=== PATIENT | male | born 1955 | race Hispanic/Latino ===

== ENCOUNTER 2018-04-22 08:38 | Outpatient (CLI) | payer MEDICAID ==
[2018-04-22 09:18] LABS: Blood Urea Nitrogen 15 mg/dL (9-20)
--- NOTE | 2018-04-22 14:15 | Cat Scan Report ---
FINAL REPORT EXAM: CT ANGIO ABD/FEMORAL ABD AORTA HISTORY: ATHEROSCLEROSIS OF [place] ARTERIES OF EXTREMITIES WITH TECHNIQUE: CT angiography of the abdomen/pelvis with CT arterial runoff of lower extremities. IV contrast was administered. Axial images and coronal and sagittal reformatted images were obtained. PRIORS: None. FINDINGS: There are coronary artery atherosclerotic calcifications. There is some dependent atelectasis at the lung bases. The visualized liver, spleen, pancreas, adrenal glands and kidneys demonstrate no significant abnormalities. There is no evidence of intestinal obstruction. The appendix is not specifically identified. There are aortoiliac atherosclerotic calcifications. There is infrarenal aortic ectasia with mural thrombus. This measures only 2.7 cm maximum diameter. There are bilateral iliac artery stents. There are iliofemoral atherosclerotic calcifications. There is some stenosis in the left common femoral artery. There is no significant flow within the right superficial femoral artery. Flow in the right lower extremity is seen throughout collateral vessels via the deep femoral artery. There is reconstituted flow in the lower popliteal artery and into the right calf trifurcation. Adequate flow is seen within dorsalis pedis, posterior tibial and peroneal arteries of the right lower extremity. On the left side there is patency of a left femoral popliteal graft. The [place] femoral artery is atherosclerotic and occluded. Flow at the calf arterial trifurcation is attenuated. Flow within anterior tibial and peroneal arteries is diminished but flow in the left posterior tibial artery is maintained. There is little flow seen in the dorsalis pedis. IMPRESSION: Aortoiliac and lower extremity atherosclerotic disease. Right-sided occluded superficial femoral artery with reconstitution for 2 did flow in the popliteal artery calf arteries via deep femoral arterial collaterals. Left-sided fem-pop graft is patent. Atherosclerotic disease involving [place] calf vessels with poor flow in anterior tibial and peroneal arteries. Left posterior tibial artery flow is maintained.
== END 2018-04-22 08:39 | disposition home or self-care (01) ==
LOC: CT 08:38
PROVIDERS: ATTEND Surgery Vascular Surgery
DX: I70.213 Atherosclerosis of native arteries of extremities with intermittent claudication, bilateral legs (principal)
CPT/HCPCS: 36415; 75635; 82565; 84520; Q9967

== ENCOUNTER 2018-05-16 11:33 | Day surgery (SDC) | payer MEDICAID ==
--- NOTE | 2018-05-16 12:14 | History and Physical Report ---
History of Present Illness Date of examination: 05/16/18 History of present illness: Paul Monte Date of visit: 05/06/2018 : 1955 Age: 63 yrs. ___ CHIEF COMPLAINTS Followup of Peripheral Vascular Disease, Unspecified ___ ALLERGIES No Known Drug Allergies ___ MEDICATIONS 1. atorvastatin 80 mg tablet, 1 by mouth daily 2. bupropion HCl XL 300 mg 24 hr tablet, extended release, 1 by mouth daily 3. diphenhydramine 50 mg capsule, 2 by mouth daily 4. hydrochlorothiazide 25 mg tablet, 1 by mouth daily 5. lisinopril 10 mg tablet, 1 by mouth daily 6. metoprolol succinate ER 100 mg tablet,extended release 24 hr, 1 by mouth daily 7. mirtazapine 30 mg tablet, 1 by mouth daily 8. phenytoin sodium extended 200 mg capsule, 1 by mouth twice daily 9. Seroquel 200 mg tablet, 1 by mouth daily 10. Vimpat 200 mg tablet, 1 by mouth daily in the am and 300mg at night ___ DIAGNOSTIC TEST DATES (06/29/2017) nuclear study Note: moderate inferior infarct, minimal inferoapical fredy-infarct ischemia 98456 (02/21/2016) echocardiogram Note: EF 49%, mild AI, [id number] __ HISTORY OF PRESENT ILLNESS Follow up CTA Still has severe pain in left buttocks radiating to thigh, describes as disabling Prior multiple vascular procedures in [place] Minimal right calf pain with walking ___ REVIEW OF SYSTEMS General/Constitutional: denies recent weight loss, denies recent weight gain, denies fever, denies chills, denies change in exercise tolerance Integumentary: denies change in hair or nails, denies rashes, denies skin lesions Eyes: denies diplopia, denies visual field defects, denies blurred vision, denies eye pain, denies discharge Ears, Nose, Mouth, Throat: denies hearing loss, denies epistaxis, denies hoarseness, denies difficulty speaking Respiratory: denies dyspnea, denies cough, denies wheezing, denies hemoptysis, denies orthopnea, denies PND Cardiovascular: denies palpitations, denies chest pain, denies peripheral edema , denies syncope, denies claudication Gastrointestinal: denies ulcer disease, denies hematochezia and denies melena Musculoskeletal: denies venous insufficiency, denies arthritic symptoms, denies back problems Neurological: seizure disorder Psychiatric: depression Endocrine: denies heat/cold intolerance, denies polydipsia, denies polyuria Hematological/Immunologic: denies bleeding disorder ___ PAST HISTORY Past Medical Illnesses: seizures, hx of depression; Cardiovascular Illnesses: hyperlipidemia, hypertension, CABG 2006. AICD 2009 for VT, PVD bilateral fem- pop 2013; Infectious Diseases: no significant history of infectious disease; Surgical Procedures: triple bypass 2006, pacemaker 2009, pad bypass 2013 (both legs); Trauma History: no history of significant physical trauma; NYHA Classification: I; Cardiology Procedures-Noninvasive: EKG February 2017, lexiscan perfusion study June 2017; Device Implants: AICD Medtronic Sprint Quattro 09/05/10; Left Ventricular Ejection Fraction: LVEF of 50% documented via nuclear study on 06/29/2017 ; Peripheral Vascular Procedures: bilateral fem-pop 2013; ___ CARDIAC RISK FACTOR SCREENING Tobacco Abuse: Yes; Family History of Heart Disease: No; Hyperlipidemia: Yes; Hypertension: Yes; Diabetes Mellitus: No; Prior History of Heart Disease: No ; Obesity: No; Sedentary Life Style: No; Age: Yes; Postmenopausal Female: No ; ___ SOCIAL HISTORY Alcohol Use: history of alcohol abuse Smoking/Tobacco Use: smokes cigarettes 1-2 ppd Diet: regular diet without modifications Caffeine Use: 2-3 pots of coffee per day Exercise: no routine exercise program Illicit Drug Use: denies the abuse of prescription or nonprescription drugs PHYSICAL EXAMINATION VITAL SIGNS: Blood Pressure- 120/70 Sitting, Left arm, large cuff Pulse- 68/min. Respirations- 16/min. Weight- 227.58781 lbs. Height- 75.00" BMI: 28 Constitutional: cooperative, alert and oriented, well developed, well nourished , in no acute distress Skin: warm and dry to touch, no apparent skin lesions, no apparent masses noted Head: normocephalic, non tender, no palpable masses Eyes: EOMS Intact, conjunctivae and lids unremarkable ENT: ears unremarkable, good dentition Neck: no palpable masses or adenopathy, no thyromegaly, JVP normal, carotid pulses are full and equal bilaterally without bruits Chest: normal symmetry, no tenderness to palpation, normal respiratory excursion, no intercostal retraction, no use of accessory muscles, normal diaphragmatic excursion, clear to auscultation Cardiac: regular rhythm, S1 normal, S2 normal, no S3 or S4, no murmurs, no gallops, no rubs detected Abdomen: soft, bowel sounds normoactive, no masses, non-tender Peripheral Pulses: nonpalpable left femoral pulse, palpable right femoral pulse 2+ Extremities & Back: both feet warm, well-perfused, no edema Psychiatric: appropriate mood, memory and judgment Neurological: no gross motor or sensory deficits noted ___ IMPRESSIONS/PLAN 1. Peripheral Vascular Disease, Unspecified 2. Nicotine Dependence, Cigarettes, With Other Nicotine-induced Disorders 3. Atherosclerosis Of [place] Arteries Of Extremities With Intermittent Claudication, Bilateral Legs 4. Essential (primary) Hypertension 5. Atherosclerosis Of Coronary Artery Bypass Graft(s) Without Angina Pectoris 6. Presence Of Automatic (implantable) Cardiac Defibrillator 7. Atherosclero of [place] arter of extrem rest pain meredith legs Left butock severe claudication: No femoral pulse, c/w aortoiliac disease on left. CTA shows diffuse iliac disease, based on exam this is causing his symptoms on left. Scheduled left leg angiogram, d/w him risks/benefits/ alternatives (meds only), will proceed with procedure at [facility]. ___ TODAYS ORDERS 1. Patient Electronic Access, Today 2. Left Lower Angiogram, 3 days, I70.223 ___ Clinic Physician: Colin Rooney MD MD Referring Physician: UMER FRANCE Medications and Allergies Allergies Allergy/AdvReac Type Severity Reaction Status Date / Time No Known Allergies Allergy Unverified 04/22/18 08:38
[2018-05-16 12:45] LABS: Basophils % (Auto) 0.6 % (0.0-1.8); Eosinophils # (Auto) 0.2 K/mm3 (0.0-0.4); Eosinophils % (Auto) 2.6 % (0.0-4.3); Hematocrit 49.6 % (35.5-45.6); Hemoglobin 17.3 gm/dl (11.8-15.2); Lymphocytes # (Auto) 2.9 K/mm3 (1.2-5.4); Lymphocytes % (Auto) 36.5 % (13.4-35.0); Mean Corpuscular HGB Conc 35 % (32-34); Mean Corpuscular Hemoglobin 31 pg (28-32); Mean Corpuscular Volume 90 fl (84-94); Monocytes # (Auto) 0.6 K/mm3 (0.0-0.8); Monocytes % (Auto) 7.4 % (0.0-7.3); Platelet Count 146 K/mm3 (140-440); Red Blood Count 5.51 M/mm3 (3.65-5.03); Red Cell Distribution Width 14.4 % (13.2-15.2)
[2018-05-16 12:53] LABS: INR 0.95 (0.87-1.13)
[2018-05-16 12:54] LABS: Partial Thromboplastin Time 30.1 Sec. (24.2-36.6)
[2018-05-16 13:11] LABS: BUN/Creatinine Ratio 24; Blood Urea Nitrogen 17 mg/dL (9-20); Calcium 9.1 mg/dL (8.4-10.2); Hemolysis Index 8
[2018-05-16] MEDS ORDERED: NACL 0.9% 500 ML 500 ML ONE (13:17)
[2018-05-16] MEDS ORDERED: NACL 0.9% 500 ML 500 ML IV SCH (14:00)
[2018-05-16] MEDS ORDERED: XYLOCAINE 2% INFILTRATI ONE (14:17)
[2018-05-16] MEDS ORDERED: HEPARIN 10,000 UNITS/10 ML ONE (14:17)
[2018-05-16] MEDS ORDERED: HEPARIN/NS 5000 UNIT/500ML(CATH LAB) 1,000 ML IR ONE (14:17)
[2018-05-16] MEDS ORDERED: ANCEF/STERILE WATER 2 GM/20 ML 0 GM/0 ML SYRINGE IV ONE (14:18)
[2018-05-16] MEDS: SUBLIMAZE ONE ×2 (14:50→15:03)
[2018-05-16] MEDS: VERSED ONE ×2 (14:50→15:03)
[2018-05-16] MEDS ORDERED: SUBLIMAZE ONE (15:04)
[2018-05-16] MEDS ORDERED: VERSED ONE (15:04)
[2018-05-16 18:36] VITALS: BP 130/78
--- NOTE | 2018-05-17 09:30 | Procedure Note ---
Date of procedure: 05/16/18 Pre-op diagnosis: Left Hip Severe Claudication, H/o Iliac stenting Post-op diagnosis: same Procedure: 1. Ultrasound-guided access of right [employer] 2. Abdominal aortogram with left lower extremity runoff 3. Balloon angioplasty of left EZRA in-stent stenosis with 8 mm balloon. Description: The risks, benefits, complications, treatment options, and expected outcomes were discussed with the patient. The patient concurred with the proposed plan, giving informed consent. Patient was brought to the solar lab technician after IV hydration was begun. The patient was sedated with Fentanyl and Versed and then prepped and draped in the usual manner. Under ultrasound guidance and using the modified Seldinger access technique, I gained access to the common femoral artery and this was eventually upsized to a 6F Italian sheath. Omniflush Catheter was placed in the abdominal aorta over wire and an aortogram was performed. Runoff pictures were obtained by selecting the contralateral iliac system with Bentson wire and Omniflush catheter. This showed the above. I placed an advantage wire down the lower extremity and placed a 6F Destination sheath over the bifurcation then gave the patient 5000 U IV heparin. I then crossed the lesion with wire and glidecatheter and confirmed I was intraluminal with an angiogram. I then treated the lesion with a 8 mm balloon at nominal pressure for 1 minute. Repeat angiogram showed a good result and no embolization. I did a sheath angiogram of the contralateral side which confirmed a good access location and the sheath was removed with manual pressure applied for 20 minutes. There was no bleeding afterwards. The patient tolerated the procedure well and there were no complications. Anesthesia: MAC, local Surgeon: VIRGEN DALE Estimated blood loss: minimal Pathology: none Condition: stable Disposition: observation
== END 2018-05-16 18:39 | disposition home or self-care (01) ==
LOC: CATHLABREC 11:33
PROVIDERS: ATTEND Surgery Vascular Surgery
DX: I70.212 Atherosclerosis of native arteries of extremities with intermittent claudication, left leg (principal); I25.10 Atherosclerotic heart disease of native coronary artery without angina pectoris; I10 Essential (primary) hypertension; I25.2 Old myocardial infarction; E78.00 Pure hypercholesterolemia, unspecified; F32.9 Major depressive disorder, single episode, unspecified; F17.210 Nicotine dependence, cigarettes, uncomplicated; E78.5 Hyperlipidemia, unspecified; F10.10 Alcohol abuse, uncomplicated; Z95.1 Presence of aortocoronary bypass graft; Z95.0 Presence of cardiac pacemaker; Z90.49 Acquired absence of other specified parts of digestive tract; Z72.89 Other problems related to lifestyle; Z98.890 Other specified postprocedural states; Z82.49 Family history of ischemic heart disease and other diseases of the circulatory system; Z83.3 Family history of diabetes mellitus; Z79.899 Other long term (current) drug therapy; Z79.01 Long term (current) use of anticoagulants
CPT/HCPCS: 36415; 37220; 75625; 75710; 76937; 80048; 85025; 85610; 85730; C1725; C1769; C1887; C1894; J1644; J2250; J3010; J7040; J0690; Q9967

== ENCOUNTER 2022-03-30 09:15 | Outpatient (CLI) | payer MEDICARE ==
--- NOTE | 2022-03-30 10:20 | XRay Report ---
LEFT SHOULDER 3 VIEWS INDICATION / CLINICAL INFORMATION: S42.92XA FRACTURE OF LEFT SHOULDER GIRDLE S42.92XS. COMPARISON: None available. FINDINGS: BONES / JOINT(S): There is a chronic appearing comminuted fracture of the left humeral head and neck. There is a separate fracture fragment involving the superior half of the humeral head with lateral r otation present. There is significant overriding of the distal fracture fragments. There is at least incomplete osseous union present. No dislocation. SOFT TISSUES: No significant abnormality. ADDITIONAL FINDINGS: The visualized left lung is clear. There is a median sternotomy. IMPRESSION: Chronic comminuted fractures of the humeral head and neck with incomplete union. Signer Name: Willy Graves MD Signed: 03/30/2022 10:15 AM Workstation Name: [id number]
== END 2022-03-30 09:16 | disposition home or self-care (01) ==
LOC: XRAY 09:15
PROVIDERS: ATTEND Orthopaedic Surgery
DX: S42.292P Other displaced fracture of upper end of left humerus, subsequent encounter for fracture with malunion (principal); S42.92XS Fracture of left shoulder girdle, part unspecified, sequela; X58.XXXD Exposure to other specified factors, subsequent encounter

== ENCOUNTER 2022-05-18 08:58 | Inpatient (IN) | payer MEDICARE ==
[2022-05-17 11:22] LABS: BUN/Creatinine Ratio 18; Blood Urea Nitrogen 14 mg/dL (9-20); Hemolysis Index 7
--- NOTE | 2022-05-17 11:42 | Anesthesia Consultation ---
Anesthesia Consult and Med Hx - Airway Anesthetic Teeth Evaluation: Edentulous ROM Head & Neck: Adequate Mental/Hyoid Distance: Adequate Mallampati Class: Class II Intubation Access Assessment: Probably Good - Pre-Operative Health Status ASA Pre-Surgery Classification: ASA4 Proposed Anesthetic Plan: General (+ART LINE) Nerve Block: IS - Pulmonary Hx Smoking: Yes (1-2 PPD X 50 YRS) Hx Asthma: No Hx Respiratory Symptoms: No (+2FS) COPD: No Hx Pneumonia: No Hx Sleep Apnea: Yes (DX SLEEP APNEA , NO CPAP USE) - Cardiovascular System Hx Hypertension: Yes (X 10 YRS. EF 20-25%) Hx Coronary Artery Disease: Yes Hx Heart Attack/AMI: Yes (2017. CABG 2006) Hx Cardia Arrhythmia: Yes (A-Fib) Hx Pacemaker: Yes Hx Internal Defibrillator: Yes (Recent generator change; denies it being discharged) Hx Peripheral Vascular Disease: Yes (STENTS JAYA LEGS and CAROTID STENOSIS) - Central Nervous System Hx Seizures: Yes (LAST SEIZURE 5 MONTHS AGO) Hx Psychiatric Problems: Yes (Anxiety/Depression/Schizophrenia) - Gastrointestinal Hx Gastroesophageal Reflux Disease: Yes - Endocrine Hx End Stage Renal Disease: No - Hematic Hx Anemia: No Hx Sickle Cell Disease: No - Other Systems Hx Alcohol Use: Yes (HX ABUSE-SOBER ON AND OFF X 5 YRS) Hx Substance Use: Yes (HX METH ADDICTION-CLEAN X 15 YRS) Hx Cancer: No - Additional Comments Anesthesia Medical History Comments: +Cardiac clearance
[2022-05-17 12:24] LABS: Hematocrit 47.4 % (35.5-45.6); Hemoglobin 16.1 gm/dl (11.8-15.2); Mean Corpuscular HGB Conc 34 % (32-34); Mean Corpuscular Volume 98 fl (84-94); Platelet Count 160 K/mm3 (140-440); Red Blood Count 4.83 M/mm3 (3.65-5.03); Red Cell Distribution Width 14.7 % (13.2-15.2)
[~2022-05-18 08:58] MED LIST: ceFAZolin/Water 2 GM/20 ML 2 GM/20 ML SYRINGE IV NR
[2022-05-18] MEDS ORDERED: LACTATED RINGERS 1,000 ML ONE (09:45)
[2022-05-18] MEDS ORDERED: HYDROmorphone 0.5 MG/0.5 ML INJ IV PRN ×2 (10:00)
[2022-05-18] MEDS ORDERED: ONDANSETRON 4 MG/2 ML INJ IV PRN ×2 (10:00)
[2022-05-18] MEDS ORDERED: fentaNYL 100 MCG/2 ML INJ IV NR (10:00)
[2022-05-18] MEDS ORDERED: MORPHINE 4 MG/1 ML INJ IV PRN (10:00)
--- NOTE | 2022-05-18 10:16 | Anesthesia Day of Surgery ---
Anesthesia Day of Surgery - Day of Surgery Patient Examined: Yes Patient H&P Reviewed: Yes Patient is NPO: Yes Cardiac Clearance: Yes
[2022-05-18] MEDS ORDERED: BUPIVACAINE/PF (0.5%) 5 MG/1 ML 30 ML VIAL INFILTRATI ONE (10:21)
[2022-05-18] MEDS ORDERED: fentaNYL 100 MCG/2 ML INJ ONE ×2 (10:22→13:46)
[2022-05-18] MEDS ORDERED: ETOMIDATE 20 MG/10 ML INJ IV ONE (10:30)
[2022-05-18] MEDS ORDERED: ROCURONIUM 50 MG/5 ML INJ IV ONE ×2 (10:30→15:03)
[2022-05-18] MEDS ORDERED: MIDAZOLAM 2 MG/2 ML INJ IV NR (11:00)
[2022-05-18] MEDS ORDERED: IBUPROFEN 600 MG TAB PO PRN (11:00)
[2022-05-18] MEDS ORDERED: PHENYLEPHRINE/NS 1,000 MCG/10 ML SYRINGE (OR USE) IV ONE ×2 (12:02→17:39)
[2022-05-18] MEDS ORDERED: ePHEDrine SULFATE 50 MG/1 ML INJ ONE (12:02)
[2022-05-18] MEDS ORDERED: MIDAZOLAM 2 MG/2 ML INJ ONE (12:02)
[2022-05-18] MEDS ORDERED: propofoL 200 MG/20 ML VIAL IV ONE (12:05)
[2022-05-18] MEDS ORDERED: SUGAMMADEX SODIUM 200 MG/2 ML VIAL IV ONE (12:12)
[2022-05-18] MEDS ORDERED: TRANEXAMIC ACID 1,000 MG/10 ML ONE (13:27)
[2022-05-18] MEDS ORDERED: ALBUMIN HUMAN 5% (12.5 GM/250 ML) INJ IV ONE (14:00)
[2022-05-18] MEDS ORDERED: KETOROLAC 30 MG/1 ML INJ ONE (14:46)
[2022-05-18] MEDS ORDERED: ONDANSETRON 4 MG/2 ML INJ ONE (14:47)
--- NOTE | 2022-05-18 16:43 | Procedure Note ---
Date of procedure: 05/18/22 Pre-op diagnosis: post-traumatic arthritis left shoulder Post-op diagnosis: same Procedure: Reverse [left] total shoulder replacement Procedure The patient was brought to the OR after being given a scalene nerve block in preop holding. He was placed in the OR table in the supine position following induction intubation by anesthesia patient was placed in a beachchair position with the [left] shoulder suspended off the side. The [left] shoulder was then prepped and draped in the usual sterile manner. A timeout procedure was done to identify the patient and the correct operative site. Utilizing a deltopectoral approach incision was carried from the coracoid process proximally distally to the insertion of the deltoid was taken to develop tissue planes it was noted to patient had a previous open rotator cuff repair therefore a small fragmentary b ranch of the cephalic vein was seen and followed the deltoid muscle was split using digital palpation next the Brown retractor was placed around the deltoid to expose more of the proximal humerus patient was noted to have contracted malunited proximal humeral fracture with proximal fragment facing directly posterior. Following meticulous dissection the head fragment was delivered piecemeal until the glenoid articular surface exposed sequential reaming done up to a size 38 glenosphere, rotator cuff tendons were atrophic and adhered to the proximal fragment with the significant atrophy also noted in the subscapularis tendon. With the arm in external rotation the subscapularis tendon was incised as well as the anterior capsule there of was no biceps tendon seen next the following capsulotomy the proximal humerus of was prepared for osteotomy using the external alignment guide with 20 of external rotation the proximal humerus was resected next the humeral shaft was reamed and broached to a #10 stem. The stem was then protected proximally this is followed by retraction of the proximal humerus to visualize the glenoid articular surface. Using the modular glenoid plate drill guide 2 mm ferry pilot hole was placed this is followed by progressive reaming to a size 4, next glenoid plate hole was made using the drill guide. The glenoid plate would bone graft was then inserted onto the glenoid using the insertion plate and mallet. Next the fixation screws were applied beginning with the superior, inferior, and the 2 inferior medial and lateral screws. Locking caps were applied to each screw head next the Glenosphere was attached to the glenohumeral plate and secured by way of the glenosphere locking screw. Next the attention was turned to sizing the humeral liner. A +0 humeral adapter tray was applied to the humeral stem this was inserted using the reverse shoulder for the finding screw kit. Next a trial 38mm +0 humeral liner was inserted. The shoulder was reduced and was taken through a range of motion and found to be stable. The shoulder was then dislocated trial liner removed and the final liner inserted. Again the shoulder was taken through a range of motion and was found to be stable following this the wound was copiously irrigated. The subscapularis tendon was repaired using #1 Vicryl. The deltopectoral pectoral fascia was reapproximated the skin was cl osed using Zipline suture, routine postoperative dressings were applied. Patient tolerated the procedure there were no complications Anesthesia: MAC, regional Surgeon: JOSSELINE WALKER (Iban Gramajoing, 1st assist) Estimated blood loss: other (200cc) Pathology: none Condition: stable Disposition: PACU
[2022-05-18] MEDS ORDERED: ceFAZolin 1 GM VIAL ONE (17:28)
[2022-05-18] MEDS ORDERED: PHENYLEPHRINE 100 MG in SODIUM CHLORIDE 0.9% 90 ML IV SCH (17:30)
[2022-05-18] MEDS ORDERED: ESMOLOL 100 MG/10 ML INJ IV ONE (17:39)
[2022-05-18] MEDS ORDERED: dexAMETHasone 20 MG/5 ML VIAL ONE (17:40)
--- NOTE | 2022-05-18 18:12 | XRay Report ---
Single frontal image of the left shoulder INDICATION: post op evaluation. IMPRESSION: Satisfactory postoperative appearance of the left shoulder arthroplasty with no complica tion identified. Unchanged fracture fragments. Expected postoperative alignment. Signer Name: Pierre Ashby MD Signed: 05/18/2022 6:08 PM Workstation Name: [id number]
--- NOTE | 2022-05-18 18:49 | Post Anesthesia Evaluation ---
- Post Anesthesia Evaluation Patient Participated: Yes Airway Patent: Yes Stable Respiratory Function: Yes Nausea/Vomiting: No Temp > 96.8F: Yes Pain Manageable: Yes Adequeate Hydration: Yes Anesthesia Complications: No Block Receding Appropriately: Yes Patient on Ventilator: No Other Comments: Neuro intact; moves all four extremities, A&O
[2022-05-18] MEDS: LACTATED RINGERS 1,000 ML IV SCH (20:45)
[2022-05-19] MEDS ORDERED: BACLOFEN 10 MG TAB PO PRN (05:58)
--- NOTE | 2022-05-19 06:08 | History and Physical Report ---
History of Present Illness Date of examination: 05/18/22 Date of admission: 05/18/22 09:59 Chief complaint: Persistent hypotension after left shoulder replacement surgery History of present illness: 67-year-old male with history of seizure disorder, hypertension, depression, hyperlipidemia and unspecified psychiatric disorder on Zyprexa had a total left shoulder replacement today. Postop patient was in persistent hypotension. No fever. IV normal saline bolus was given. Blood pressure came up from 99/81 tp 106/71. Anesthesia and orthopedic surgery requested the patient be admitted to ICU because of the persistent hypotension and prevention of patient crashing on the floor. Patient was started on Kian-Synephrine at aa very low-dose. To be kept on hold if blood pressure is above 100 and MAP is about 80. Field Geologist was informed by PACU. No fever or chills. No other predisposing test. Past History Past Medical History: GERD, hypertension, hyperlipidemia, seizures, other (Depression) Past Surgical History: Other (Left shoulder replacement) Social history: lives with family, full code Family history: hypertension Medications and Allergies Allergies Allergy/AdvReac Type Severity Reaction Status Date / Time escitalopram [From Lexapro] Allergy Diarrhea Verified 05/16/22 11:43 sertraline [From Zoloft] Allergy Diarrhea Verified 05/16/22 11:43 Home Medications Medication Instructions Recorded Confirmed Last Taken Type Atorvastatin Calcium [Lipitor] 20 mg PO DAILY 05/16/18 05/16/22 05/18/22 06:00 History Lacosamide [Vimpat] 200 mg PO QAM 05/16/18 05/16/22 05/18/22 06:00 History Lacosamide [Vimpat] 300 mg PO QHS 05/16/18 05/18/22 05/17/22 History Apixaban [Eliquis] 5 mg PO BID 05/16/22 05/18/22 05/14/22 History Baclofen [Lioresal] 10 mg PO PRN PRN 05/16/22 05/18/22 Unknown History FLUoxetine HCL [FLUoxetine] 60 mg PO QDAY 05/16/22 05/16/22 05/18/22 06:00 History Meloxicam [Mobic] 7.5 mg PO QDAY 05/16/22 05/16/22 Unknown History Metoprolol [Lopressor TAB] 50 mg PO DAILY 05/16/22 05/16/22 05/18/22 06:00 History Naproxen Sodium [Aleve] 220 mg PO DAILY 05/16/22 05/16/22 Unknown History OLANZapine [Zyprexa] 5 mg PO DAILY 05/16/22 05/16/22 05/18/22 06:00 History Omeprazole 40 mg PO DAILY 05/16/22 05/16/22 05/18/22 06:00 History Prazosin [Minipress] 1 mg PO DAILY 05/16/22 05/16/22 05/18/22 06:00 History Active Meds: Active Medications Baclofen (Baclofen 10 Mg Tab) 10 mg PO PRN PRN PRN Reason: Muscle Spasm Enoxaparin Sodium (Enoxaparin 40 Mg/0.4 Ml Inj) 40 mg SUB-Q QDAY [facility] Lactated Ringer's (Lactated Ringers) 1,000 mls @ 75 mls/hr IV DIRECT [facility] Last Admin: 05/18/22 20:45 Dose: 75 mls/hr Phenylephrine HCl 100 mg/ (Sodium Chloride) 100 mls @ 3 mls/hr IV TITR [facility]; Protocol Last Titration: 05/18/22 20:15 Dose: 0 mcg/min, 0 mls/hr Ibuprofen (Ibuprofen 600 Mg Tab) 600 mg PO Q6H PRN PRN Reason: Pain, Mild (1-3) Ketorolac Tromethamine (Ketorolac 30 Mg/1 Ml Inj) 15 mg IV Q6H PRN PRN Reason: Pain, Moderate (4-6) Stop: 05/23/22 10:59 Miscellaneous Medication (Atorvastatin Calcium [Lipitor]) 20 mg PO DAILY [facility] Miscellaneous Medication (Fluoxetine Hcl [Fluoxetine]) 60 mg PO QDAY [facility] Miscellaneous Medication (Lacosamide [Vimpat]) 300 mg PO QHS [facility] Miscellaneous Medication (Lacosamide [Vimpat]) 200 mg PO QAM [facility] Miscellaneous Medication (Omeprazole [Omeprazole]) 40 mg PO DAILY [facility] Morphine Sulfate (Morphine 2 Mg/1 Ml Inj) 2 mg IV Q4H PRN PRN Reason: Pain, Moderate (4-6) Olanzapine (Olanzapine 5 Mg Tab) 5 mg PO DAILY [facility] Prazosin HCl (Prazosin 1 Mg Cap) 1 mg PO DAILY [facility] Sodium Chloride (Sodium Chloride 0.9% 10 Ml Flush Syringe) 10 ml IV PRN NR Stop: 05/20/22 09:59 Exam - Constitutional Vitals: Temp Pulse Resp BP Pulse Ox 96.9 F L 111 H 20 97/79 97 05/19/22 04:39 05/19/22 05:21 05/19/22 05:21 05/19/22 05:21 05/19/22 05:21 General appearance: Present: no acute distress, well-nourished - EENT Eyes: Present: PERRL ENT: hearing intact, clear oral mucosa - Neck Neck: Present: supple, normal ROM - Respiratory Respiratory effort: normal Respiratory: bilateral: CTA - Cardiovascular Heart rate: 78 Rhythm: regular Heart Sounds: Present: S1 & S2. Absent: rub, click - Extremities Extremities: pulses symmetrical, No edema Peripheral Pulses: within normal limits - Abdominal General gastrointestinal: Present: soft, non-tender, non-distended, normal bowel sounds Male genitourinary: Present: normal - Integumentary Integumentary: Present: clear, warm, dry - Musculoskeletal Musculoskeletal: gait normal, strength equal bilaterally - Psychiatric Psychiatric: appropriate mood/affect, intact judgment & insight - Neurologic Neurologic: CNII-XII intact, moves all extremities HEART Score - HEART Score History: Slightly suspicious Age: > 65 Risk factors: 1-2 risk factors Troponin: < normal limit - Critical Actions Critical Actions: 0-3 pts:0.9-1.7%risk of adverse cardiac event.Candidate for discharge Results - Labs CBC & Chem 7: 05/17/22 00:01 05/17/22 00:01 Labs: Laboratory Last Values WBC 9.4 K/mm3 (4.5-11.0) 05/17/22 00:01 RBC 4.83 M/mm3 (3.65-5.03) 05/17/22 00:01 Hgb 16.1 gm/dl (11.8-15.2) H 05/17/22 00:01 Hct 47.4 % (35.5-45.6) H 05/17/22 00:01 MCV 98 fl (84-94) H 05/17/22 00:01 MCH 33 pg (28-32) H 05/17/22 00:01 MCHC 34 % (32-34) 05/17/22 00:01 RDW 14.7 % (13.2-15.2) 05/17/22 00:01 Plt Count 160 K/mm3 (140-440) 05/17/22 00:01 Sodium 132 mmol/L (137-145) L 05/17/22 00:01 Potassium 4.1 mmol/L (3.6-5.0) 05/17/22 00:01 Chloride 99.7 mmol/L (98-107) 05/17/22 00:01 Carbon Dioxide 18 mmol/L (22-30) L 05/17/22 00:01 Anion Gap 18 mmol/L 05/17/22 00:01 BUN 14 mg/dL (9-20) 05/17/22 00:01 Creatinine 0.8 mg/dL (0.8-1.3) 05/17/22 00:01 Estimated GFR > 60 ml/min 05/17/22 00:01 BUN/Creatinine Ratio 18 % 05/17/22 00:01 Glucose 124 mg/dL (75-100) H 05/17/22 00:01 POC Glucose 134 mg/dL (70-105) H 05/18/22 17:49 Calcium 9.0 mg/dL (8.4-10.2) 05/17/22 00:01 SARS-CoV-2 (PCR) Negative (Negative) 05/17/22 10:30 Guzman/IV: Voiding Method Condom Catheter Assessment and Plan Assessment and plan: Critical care statement The high probability OF a clinically significant sudden or life-threatening deterioration of the cardiorespiratory system and endocrine system required my full and direct attention, intervention and postoperative management. The aggregate critical care time was 40 minutes. The time is in addition to time spent performing reported procedures but includes the followin: Data review and interpretation 2: Patient assessment and monitoring of vital signs 3: Documentation 4:: Medication orders and management Advance Directives: Yes (Full code) VTE prophylaxis?: Chemical Plan of care discussed with patient/family: Yes - Patient Problems (1) Hypotension after procedure Current Visit: Yes Status: Acute Plan to address problem: Hypertension after left shoulder replacement surgery IV normal saline bolus given Started on Kian-Synephrine at a very low dose Admit to ICU for observation and possible use of pressors (2) Hyponatremia Current Visit: Yes Status: Acute Plan to address problem: IV normal saline for now (3) Seizure disorder Current Visit: Yes Status: Chronic Plan to address problem: Continue Vimpat (4) Hypertension Current Visit: Yes Status: Chronic Qualifiers: Hypertension type: primary hypertension Qualified Code(s): I10 - Essential (primary) hypertension Plan to address problem: Hold metoprolol for now Because of the hypotension (5) Depression Current Visit: Yes Status: Chronic Qualifiers: Depression Type: unspecified Qualified Code(s): F32.A - Depression, unsp ecified Plan to address problem: Continue fluoxetine (6) Hyperlipidemia Current Visit: Yes Status: Chronic Qualifiers: Hyperlipidemia type: mixed hyperlipidemia Qualified Code(s): E78.2 - Mixed hyperlipidemia Plan to address problem: Continue statins (7) DVT prophylaxis Current Visit: No Status: Acute Plan to address problem: SCDs for now and GI prophylaxis (8) Advance care planning Current Visit: Yes Status: Acute Plan to address problem: Disease education conducted, care plan discussed, diagnosis discussed and progno sis discussed. Patient acknowledged understanding with care plan. +30 Minutes. Patient is full code.
[2022-05-19 06:36] LABS: Basophils % (Auto) 0.1 % (0.0-1.8); Hematocrit 36.9 % (35.5-45.6); Hemoglobin 12.2 gm/dl (11.8-15.2); Lymphocytes # (Auto) 1.3 K/mm3 (1.2-5.4); Lymphocytes % (Auto) 12.9 % (13.4-35.0); Mean Corpuscular HGB Conc 33 % (32-34); Mean Corpuscular Volume 99 fl (84-94); Monocytes # (Auto) 0.8 K/mm3 (0.0-0.8); Platelet Count 135 K/mm3 (140-440); Red Blood Count 3.74 M/mm3 (3.65-5.03); Red Cell Distribution Width 14.6 % (13.2-15.2)
[2022-05-19] MEDS: ENOXAPARIN 40 MG/0.4 ML INJ SUB-Q SCH ×2 (07:56→10:18)
[2022-05-19 08:48] LABS: Blood Urea Nitrogen 13 mg/dL (9-20); Calcium 8.3 mg/dL (8.4-10.2); Hemolysis Index 0
[2022-05-19 08:53] LABS: BUN/Creatinine Ratio 19
--- NOTE | 2022-05-19 09:59 | Progress Note ---
<JAYLYN YODER - Last Filed: 05/19/22 13:55> Assessment and Plan Assessment and plan: This is a 67-year-old male with A. fib, heart failure with reduced EF, AICD in situ, schizophrenia, severe depression, HTN, HLD, PVD, [place], nicotine abuser admitted s/p total left shoulder replacement on 05/18 for hypotension Neuro: h/o schizophrenia, severe depression, seizure disorder -Continue fluoxetine, zyprexa, vimpat -Reorientation as needed -Maintain sleep-wake cycle -aspiration/seizure precautions -As needed analgesia -PT/OT consulted, appreciate recommendation Cardiac: h/o HTN, HFrEF with AICD in stiu, afib, HLD, PVD s/p stents to BLE -Hold home eliquis -Resume home metoprolol -Continue lipitor -Blood pressure monitoring per protocol -s/p kian-synephrine -CCM consulted, appreciate recommendations Respiratory: h/o [place], smoker -Smoking cessation counseling -Pulmonary hygiene -IS to bedside -Outpatient pulm follow up -SPO2 monitoring per protocol GI: NAD -24 hours + 820 ml -PPI -Cardiac diet -BR: colace : NAD -Renally dose medications -Avoid nephrotoxic medications ID: NAD -Monitor WBC and temperature curve Endo: NAD -Avoid hypoglycemia Heme: NAD -Trend CBC -Transfuse hemoglobin less than 7 -SCDs to BLE while in bed The high probability of a clinically significant, sudden or life threatening det erioration of the [cardio] system(s) required my full and direct attention, intervention and personal management. The aggregate critical care time was [60] minutes. This time is in addition to time spent performing reported procedures but includes the following: [x] Data Review and interpretation [x] Patient assessment and monitoring of vital signs [x] Documentation [x] Medication orders and management Disposition Plan: transfer to floor Total Time Spent with Patient (Minutes): 60 History Interval history: This is a 67-year-old male with A. fib, heart failure with reduced EF (20 to 25%) s/p AICD, schizophrenia, severe depression, hypertension, hyperlipidemia, PVD s/p stents to bilateral lower extremities, [place], smoker who had a total left shoulder replacement on 05/18. Patient was hypotensive and was started on low- dose Kian-Synephrine and transferred to the ICU for closer monitoring. Hospital course to date: 05/19: Patient has MIVF running, no acute vents reported overnight. Systolic blood pressures ranging from upper 90s to 110s. Transfer to the floor today. Remove miriam, send stat h/h due to bleeding with getting OOB with PT. Hospitalist Physical - Constitutional Vitals: Temp Pulse Resp BP Pulse Ox 96.9 F L 120 H 18 115/79 97 05/19/22 04:39 05/19/22 06:41 05/19/22 06:41 05/19/22 06:41 05/19/22 08:18 General appearance: Present: no acute distress, well-nourished - EENT Eyes: Present: PERRL, EOM intact ENT: clear oral mucosa, dentition normal - Neck Neck: Present: normal ROM - Respiratory Respiratory effort: normal Respiratory: bilateral: CTA, diminished - Cardiovascular Rhythm: regular Heart Sounds: Present: S1 & S2. Absent: systolic murmur, diastolic murmur - Extremities Extremities: no ischemia, pulses intact, pulses symmetrical, No edema, normal temperature, normal color Peripheral Pulses: within normal limits - Abdominal General gastrointestinal: soft, non-tender, non-distended, normal bowel sounds - Integumentary Integumentary: Present: warm, dry - Psychiatric Psychiatric: cooperative - Neurologic Neurologic: CNII-XII intact, no focal deficits, moves all extremities - Allied Health Allied health notes reviewed: nursing, PT, OT HEART Score - HEART Score Age: > 65 Risk factors: 1-2 risk factors Troponin: < normal limit - Critical Actions Critical Actions: 0-3 pts:0.9-1.7%risk of adverse cardiac event.Candidate for discharge Results - Labs CBC & Chem 7: 05/19/22 12:50 05/19/22 08:20 Labs: Laboratory Last Values WBC 10.4 K/mm3 (4.5-11.0) 05/19/22 06:00 RBC 3.74 M/mm3 (3.65-5.03) 05/19/22 06:00 Hgb 12.2 gm/dl (11.8-15.2) D 05/19/22 06:00 Hct 36.9 % (35.5-45.6) D 05/19/22 06:00 MCV 99 fl (84-94) H 05/19/22 06:00 MCH 33 pg (28-32) H 05/19/22 06:00 MCHC 33 % (32-34) 05/19/22 06:00 RDW 14.6 % (13.2-15.2) 05/19/22 06:00 Plt Count 135 K/mm3 (140-440) L 05/19/22 06:00 Lymph % (Auto) 12.9 % (13.4-35.0) L 05/19/22 06:00 [place] % (Auto) 8.0 % (0.0-7.3) H 05/19/22 06:00 Eos % (Auto) 0.0 % (0.0-4.3) 05/19/22 06:00 Baso % (Auto) 0.1 % (0.0-1.8) 05/19/22 06:00 Lymph # (Auto) 1.3 K/mm3 (1.2-5.4) 05/19/22 06:00 [place] # (Auto) 0.8 K/mm3 (0.0-0.8) 05/19/22 06:00 Eos # (Auto) 0.0 K/mm3 (0.0-0.4) 05/19/22 06:00 Baso # (Auto) 0.0 K/mm3 (0.0-0.1) 05/19/22 06:00 Seg Neutrophils % 79.0 % (40.0-70.0) H 05/19/22 06:00 Seg Neutrophils # 8.2 K/mm3 (1.8-7.7) H 05/19/22 06:00 Sodium 140 mmol/L (137-145) D 05/19/22 08:20 Potassium 3.9 mmol/L (3.6-5.0) 05/19/22 08:20 Chloride 107.8 mmol/L (98-107) H 05/19/22 08:20 Carbon Dioxide 22 mmol/L (22-30) 05/19/22 08:20 Anion Gap 14 mmol/L 05/19/22 08:20 BUN 13 mg/dL (9-20) 05/19/22 08:20 Creatinine 0.7 mg/dL (0.8-1.3) L 05/19/22 08:20 Estimated GFR > 60 ml/min 05/19/22 08:20 BUN/Creatinine Ratio 19 % 05/19/22 08:20 Glucose 117 mg/dL (75-100) H 05/19/22 08:20 POC Glucose 134 mg/dL (70-105) H 05/18/22 17:49 Calcium 8.3 mg/dL (8.4-10.2) L 05/19/22 08:20 SARS-CoV-2 (PCR) Negative (Negative) 05/17/22 10:30 Guzman/IV: Voiding Method Condom Catheter Active Medications - Current Medications Current Medications: Generic Name Dose Route Start Last Admin Trade Name Freq PRN Reason Stop Dose Admin Atorvastatin Calcium 20 mg 05/19/22 22:00 Atorvastatin 20 Mg Tab PO QHS [facility] Baclofen 10 mg 05/19/22 05:58 Baclofen 10 Mg Tab PO DAILY PRN Muscle Spasm Docusate Sodium 100 mg 05/19/22 10:00 Docusate Sodium 100 Mg Cap PO BID [facility] Enoxaparin Sodium 40 mg 05/18/22 12:00 05/19/22 07:56 Enoxaparin 40 Mg/0.4 Ml Inj SUB-Q Not Given QDAY [facility] Fluoxetine HCl 60 mg 05/19/22 10:00 Fluoxetine 20 Mg Cap PO QDAY [facility] Lactated Ringer's 1,000 mls @ 75 mls/hr 05/18/22 10:00 05/18/22 20:45 Lactated Ringers IV 75 mls/hr DIRECT [facility] Administration Phenylephrine HCl 100 mg/ 100 mls @ 3 mls/hr 05/18/22 17:30 05/18/22 20:15 Sodium Chloride IV 0 mcg/min TITR [facility] 0 mls/hr Titration Protocol 50 MCG/MIN Ibuprofen 600 mg 05/18/22 11:00 Ibuprofen 600 Mg Tab PO Q6H PRN Pain, Mild (1-3) Ketorolac Tromethamine 15 mg 05/18/22 11:00 Ketorolac 30 Mg/1 Ml Inj IV 05/23/22 10:59 Q6H PRN Pain, Moderate (4-6) Lacosamide 300 mg 05/19/22 22:00 Lacosamide 100 Mg Tab PO QHS [facility] Lacosamide 200 mg 05/19/22 10:00 Lacosamide 100 Mg Tab PO QAM [facility] Morphine Sulfate 2 mg 05/18/22 10:00 Morphine 2 Mg/1 Ml Inj IV Q4H PRN Pain, Moderate (4-6) Olanzapine 5 mg 05/19/22 10:00 Olanzapine 5 Mg Tab PO DAILY [facility] Pantoprazole Sodium 40 mg 05/19/22 10:00 Pantoprazole 40 Mg Tab PO DAILY [facility] Prazosin HCl 1 mg 05/19/22 10:00 Prazosin 1 Mg Cap PO DAILY [facility] Sodium Chloride 10 ml 05/18/22 10:00 Sodium Chloride 0.9% 10 Ml Flush Syringe IV 05/20/22 09:59 PRN NR <GAUDENCIO MEJIA - Last Filed: 05/29/22 11:35> History Interval history: I saw and evaluated the patient. I agree with the findings and the plan of care as documented in the Nurse Practitioner's~note, with the following corrections and additions. Hospitalist Physical - Constitutional Vitals: Temp Pulse Resp BP Pulse Ox 97.6 F 92 H 18 96/66 95 05/26/22 10:35 05/26/22 14:31 05/26/22 10:35 05/26/22 14:31 05/26/22 10:35 HEART Score - HEART Score Troponin: Troponin T < 0.010 ng/mL (0.00-0.029) 05/20/22 22:38 Results - Labs CBC & Chem 7: 05/26/22 05:45 05/26/22 05:45 Labs: Laboratory Last Values WBC 6.0 K/mm3 (4.5-11.0) 05/26/22 05:45 RBC 2.99 M/mm3 (3.65-5.03) L 05/26/22 05:45 Hgb 9.7 gm/dl (11.8-15.2) L 05/26/22 05:45 Hct 28.9 % (35.5-45.6) L 05/26/22 05:45 MCV 97 fl (84-94) H 05/26/22 05:45 MCH 33 pg (28-32) H 05/26/22 05:45 MCHC 34 % (32-34) 05/26/22 05:45 RDW 14.5 % (13.2-15.2) 05/26/22 05:45 Plt Count 199 K/mm3 (140-440) 05/26/22 05:45 Lymph % (Auto) 26.9 % (13.4-35.0) 05/26/22 05:45 [place] % (Auto) 10.7 % (0.0-7.3) H 05/26/22 05:45 Eos % (Auto) 2.5 % (0.0-4.3) 05/26/22 05:45 Baso % (Auto) 0.5 % (0.0-1.8) 05/26/22 05:45 Lymph # (Auto) 1.6 K/mm3 (1.2-5.4) 05/26/22 05:45 [place] # (Auto) 0.6 K/mm3 (0.0-0.8) 05/26/22 05:45 Eos # (Auto) 0.2 K/mm3 (0.0-0.4) 05/26/22 05:45 Baso # (Auto) 0.0 K/mm3 (0.0-0.1) 05/26/22 05:45 Seg Neutrophils % 59.4 % (40.0-70.0) 05/26/22 05:45 Seg Neutrophils # 3.6 K/mm3 (1.8-7.7) 05/26/22 05:45 Sodium 139 mmol/L (137-145) 05/26/22 05:45 Potassium 4.0 mmol/L (3.6-5.0) D 05/26/22 05:45 Chloride 106.1 mmol/L (98-107) 05/26/22 05:45 Carbon Dioxide 21 mmol/L (22-30) L 05/26/22 05:45 Anion Gap 16 mmol/L 05/26/22 05:45 BUN 12 mg/dL (9-20) 05/26/22 05:45 Creatinine 0.7 mg/dL (0.8-1.3) L 05/26/22 05:45 Estimated GFR > 60 ml/min 05/26/22 05:45 BUN/Creatinine Ratio 17 % 05/26/22 05:45 Glucose 99 mg/dL (75-100) 05/26/22 05:45 POC Glucose 138 mg/dL (70-105) H 05/20/22 21:28 Calcium 8.3 mg/dL (8.4-10.2) L 05/26/22 05:45 Troponin T < 0.010 ng/mL (0.00-0.029) 05/20/22 22:38 SARS-CoV-2 (PCR) Negative (Negative) 05/17/22 10:30 Blood Type O POSITIVE 05/25/22 04:47 Antibody Screen Negative 05/25/22 04:47 Guzman/IV: Voiding Method Urinal Nutrition/Malnutrition Assess - Dietary Evaluation Nutrition/Malnutrition Findings: Nutrition Notes Start: 05/26/22 11:19 Freq: Status: Discharge Protocol: Document 05/26/22 11:19 [facility] (Rec: 05/26/22 11:26 [facility] [email or web address]) Nutrition Notes Need for Assessment generated from: LOS Initial or Follow up Brief Note Other Pertinent Diagnosis s/p closed reduction (L) shoulder Current Diet NPO (was on cardiac diet) Height 6 ft 4 in Weight 92.5 kg [place] Body Weight (kg) 91.81 BMI 24.8 Weight Status Appropriate Subjective/Other Information Pt screened for LOS. He has consumed 42% of meals since admission. D/C summary written this am. Percent of energy/protein needs met: 40% energy 38% pro Burn Absent Trauma Absent Current % PO Poor (25-49%) Minimum of two criteria No Is patient on ventilator? No Is Patient Ambulatory and/or Out of Bed Yes REE-([facility]-ambulatory/OOB) [ 2348.450 [id number]] Calculation Used for Recommendations [facility] Additional Notes Pro needs 1-1.2g/k-111g/ day Fluid needs 1ml/kcal Nutrition Intervention Follow-Up By: 05/31/22 Additional Comments F/U: intakes, need for ONS
[2022-05-19] MEDS ORDERED: NON-FORMULARY EACH (Atorvastatin Calcium [Lipitor] 80 MG Tablet) PO SCH (10:00)
[2022-05-19] MEDS ORDERED: FLUOXETINE HCL 60 MG PO SCH (10:00)
[2022-05-19] MEDS ORDERED: NON-FORMULARY EACH (Omeprazole [Omeprazole] 40 MG Capsule.Dr) PO SCH (10:00)
[2022-05-19] MEDS ORDERED: NON-FORMULARY EACH (Lacosamide [Vimpat] 200 MG Tablet) PO SCH (10:00)
[2022-05-19] MEDS: PANTOPRAZOLE 40 MG TAB PO SCH (10:14)
[2022-05-19] MEDS: FLUoxetine 20 MG CAP PO SCH (10:16)
[2022-05-19] MEDS: LACOSAMIDE 100 MG TAB PO SCH ×2 (10:18→21:59)
[2022-05-19] MEDS: PRAZOSIN 1 MG CAP PO SCH (10:18)
[2022-05-19] MEDS: DOCUSATE SODIUM 100 MG CAP PO SCH ×2 (10:22→21:59)
[2022-05-19] MEDS: LACTATED RINGERS 1,000 ML IV SCH (10:23)
--- NOTE | 2022-05-19 13:02 | Progress Note ---
Assessment and Plan s/p left shoulder replacement continue observation, hopefully dc when medically stable, Subjective Date of service: 05/19/22 Interval history: currently in ICU for observation, doing ok regarding shoulder Objective Vital signs: Vital Signs - 12hr 05/19/22 05/19/22 05/19/22 01:00 01:11 01:21 Temperature Pulse Rate 121 H 115 H 124 H Respiratory 21 15 15 Rate Respiratory Rate [Left Leg] Blood Pressure 110/77 110/77 110/77 O2 Sat by Pulse 96 97 98 Oximetry 05/19/22 05/19/22 05/19/22 01:31 01:41 01:51 Temperature Pulse Rate 115 H 114 H 122 H Respiratory 20 19 18 Rate Respiratory Rate [Left Leg] Blood Pressure 110/77 110/77 110/77 O2 Sat by Pulse 97 99 98 Oximetry 05/19/22 05/19/22 05/19/22 02:00 02:11 02:21 Temperature Pulse Rate 107 H 119 H 116 H Respiratory 18 18 19 Rate Respiratory Rate [Left Leg] Blood Pressure 112/71 112/71 112/71 O2 Sat by Pulse 97 97 98 Oximetry 05/19/22 05/19/22 05/19/22 02:31 02:41 02:51 Temperature Pulse Rate 114 H 109 H 117 H Respiratory 21 19 19 Rate Respiratory Rate [Left Leg] Blood Pressure 112/71 112/71 112/71 O2 Sat by Pulse 98 98 98 Oximetry 05/19/22 05/19/22 05/19/22 03:00 03:11 03:21 Temperature Pulse Rate 120 H 117 H 119 H Respiratory 19 18 19 Rate Respiratory 20 Rate [Left Leg] Blood Pressure 99/81 99/81 99/81 O2 Sat by Pulse 99 98 98 Oximetry 05/19/22 05/19/22 05/19/22 03:31 03:41 03:51 Temperature Pulse Rate 118 H 119 H 111 H Respiratory 21 18 17 Rate Respiratory Rate [Left Leg] Blood Pressure 99/81 99/81 99/81 O2 Sat by Pulse 97 94 97 Oximetry 05/19/22 05/19/22 05/19/22 04:00 04:11 04:21 Temperature Pulse Rate 112 H 118 H 112 H Respiratory 18 21 22 Rate Respiratory Rate [Left Leg] Blood Pressure 106/71 106/71 106/71 O2 Sat by Pulse 98 96 96 Oximetry 05/19/22 05/19/22 05/19/22 04:31 04:39 04:41 Temperature 96.9 F L Pulse Rate 112 H 112 H Respiratory 24 17 Rate Respiratory Rate [Left Leg] Blood Pressure 106/71 106/71 O2 Sat by Pulse 96 95 Oximetry 05/19/22 05/19/22 05/19/22 04:51 05:00 05:11 Temperature Pulse Rate 120 H 118 H 116 H Respiratory 21 19 21 Rate Respiratory Rate [Left Leg] Blood Pressure 106/71 106/71 97/79 O2 Sat by Pulse 96 95 98 Oximetry 05/19/22 05/19/22 05/19/22 05:14 05:21 05:31 Temperature Pulse Rate 111 H 99 H Respiratory 20 20 18 Rate Respiratory Rate [Left Leg] Blood Pressure 97/79 97/79 O2 Sat by Pulse 99 97 96 Oximetry 05/19/22 05/19/22 05/19/22 05:41 05:51 06:01 Temperature Pulse Rate 105 H 112 H 103 H Respiratory 22 18 21 Rate Respiratory Rate [Left Leg] Blood Pressure 97/79 97/79 115/79 O2 Sat by Pulse 97 97 97 Oximetry 05/19/22 05/19/22 05/19/22 06:11 06:21 06:31 Temperature Pulse Rate 114 H 128 H 111 H Respiratory 18 20 20 Rate Respiratory Rate [Left Leg] Blood Pressure 115/79 115/79 115/79 O2 Sat by Pulse 96 96 97 Oximetry 05/19/22 05/19/22 05/19/22 06:41 08:18 10:18 Temperature Pulse Rate 120 H 121 H Respiratory 18 Rate Respiratory Rate [Left Leg] Blood Pressure 115/79 O2 Sat by Pulse 97 97 Oximetry Incision: draining Weight bearing status: as tolerated - Labs CBC & BMP: 05/19/22 06:00 05/19/22 08:20 Labs: Abnormal lab results 05/18/22 05/19/22 05/19/22 Range/Units 17:49 06:00 08:20 MCV 99 H (84-94) fl MCH 33 H (28-32) pg Plt Count 135 L (140-440) K/mm3 Lymph % (Auto) 12.9 L (13.4-35.0) % [place] % (Auto) 8.0 H (0.0-7.3) % Seg Neutrophils % 79.0 H (40.0-70.0) % Seg Neutrophils # 8.2 H (1.8-7.7) K/mm3 Chloride 107.8 H (98-107) mmol/L Creatinine 0.7 L (0.8-1.3) mg/dL Glucose 117 H (75-100) mg/dL POC Glucose 134 H (70-105) mg/dL Calcium 8.3 L (8.4-10.2) mg/dL
[2022-05-19 13:06] LABS: Hematocrit 34.3 % (35.5-45.6); Hemoglobin 11.7 gm/dl (11.8-15.2)
[2022-05-19] MEDS ORDERED: METOPROLOL TARTRATE 50 MG TAB PO SCH (14:00)
--- NOTE | 2022-05-19 14:12 | Consultation ---
History of Present Illness - Reason for Consult Consult date: 05/19/22 Requesting physician: AJAY DONOVAN - History of Present Illness 67-year-old male with history of seizure disorder, hypertension, depression, hyperlipidemia and unspecified psychiatric disorder on Zyprexa had a total left shoulder replacement today. Postop patient was in persistent hypotension. No fever. IV normal saline bolus was given. Blood pressure came up from 99/81 tp 106/71. Anesthesia and orthopedic surgery requested the patient be admitted to ICU because of the persistent hypotension and prevention of patient crashing on the floor. No acute events overnight. Stable for floor transfer. Past History Past Medical History: GERD, hypertension, hyperlipidemia, seizures, other (Depression) Past Surgical History: Other (Left shoulder replacement) Social history: lives with family, full code Family history: hypertension Medications and Allergies Allergies Allergy/AdvReac Type Severity Reaction Status Date / Time escitalopram [From Lexapro] Allergy Diarrhea Verified 05/16/22 11:43 sertraline [From Zoloft] Allergy Diarrhea Verified 05/16/22 11:43 Home Medications Medication Instructions Recorded Confirmed Last Taken Type Atorvastatin Calcium [Lipitor] 20 mg PO DAILY 05/16/18 05/16/22 05/18/22 06:00 History Lacosamide [Vimpat] 200 mg PO QAM 05/16/18 05/16/22 05/18/22 06:00 History Lacosamide [Vimpat] 300 mg PO QHS 05/16/18 05/18/22 05/17/22 History Apixaban [Eliquis] 5 mg PO BID 05/16/22 05/18/22 05/14/22 History Baclofen [Lioresal] 10 mg PO PRN PRN 05/16/22 05/18/22 Unknown History FLUoxetine HCL [FLUoxetine] 60 mg PO QDAY 05/16/22 05/16/22 05/18/22 06:00 History Meloxicam [Mobic] 7.5 mg PO QDAY 05/16/22 05/16/22 Unknown History Metoprolol [Lopressor TAB] 50 mg PO DAILY 05/16/22 05/16/22 05/18/22 06:00 History Naproxen Sodium [Aleve] 220 mg PO DAILY 05/16/22 05/16/22 Unknown History OLANZapine [Zyprexa] 5 mg PO DAILY 05/16/22 05/16/22 05/18/22 06:00 History Omeprazole 40 mg PO DAILY 05/16/22 05/16/22 05/18/22 06:00 History Prazosin [Minipress] 1 mg PO DAILY 05/16/22 05/16/22 05/18/22 06:00 History Active Meds: Active Medications Atorvastatin Calcium (Atorvastatin 20 Mg Tab) 20 mg PO QHS [facility] Baclofen (Baclofen 10 Mg Tab) 10 mg PO DAILY PRN PRN Reason: Muscle Spasm Docusate Sodium (Docusate Sodium 100 Mg Cap) 100 mg PO BID [facility] Last Admin: 05/19/22 10:22 Dose: 100 mg Enoxaparin Sodium (Enoxaparin 40 Mg/0.4 Ml Inj) 40 mg SUB-Q QDAY [facility] Last Admin: 05/19/22 10:18 Dose: 40 mg Fluoxetine HCl (Fluoxetine 20 Mg Cap) 60 mg PO QDAY [facility] Last Admin: 05/19/22 10:16 Dose: 60 mg Lactated Ringer's (Lactated Ringers) 1,000 mls @ 75 mls/hr IV DIRECT [facility] Last Admin: 05/19/22 10:23 Dose: 75 mls/hr Phenylephrine HCl 100 mg/ (Sodium Chloride) 100 mls @ 3 mls/hr IV TITR [facility]; Protocol Last Titration: 05/18/22 20:15 Dose: 0 mcg/min, 0 mls/hr Ibuprofen (Ibuprofen 600 Mg Tab) 600 mg PO Q6H PRN PRN Reason: Pain, Mild (1-3) Ketorolac Tromethamine (Ketorolac 30 Mg/1 Ml Inj) 15 mg IV Q6H PRN PRN Reason: Pain, Moderate (4-6) Stop: 05/23/22 10:59 Lacosamide (Lacosamide 100 Mg Tab) 300 mg PO QHS [facility] Lacosamide (Lacosamide 100 Mg Tab) 200 mg PO QAM [facility] Last Admin: 05/19/22 10:18 Dose: 200 mg Metoprolol Tartrate (Metoprolol Tartrate 50 Mg Tab) 50 mg PO DAILY [facility] Morphine Sulfate (Morphine 2 Mg/1 Ml Inj) 2 mg IV Q4H PRN PRN Reason: Pain, Moderate (4-6) Olanzapine (Olanzapine 5 Mg Tab) 5 mg PO DAILY [facility] Last Admin: 05/19/22 10:19 Dose: 5 mg Pantoprazole Sodium (Pantoprazole 40 Mg Tab) 40 mg PO DAILY [facility] Last Admin: 05/19/22 10:14 Dose: 40 mg Prazosin HCl (Prazosin 1 Mg Cap) 1 mg PO DAILY [facility] Last Admin: 05/19/22 10:18 Dose: 1 mg Sodium Chloride (Sodium Chloride 0.9% 10 Ml Flush Syringe) 10 ml IV PRN NR Stop: 05/20/22 09:59 Exam - Constitutional Vitals: Temp Pulse Resp BP Pulse Ox 98.2 F 121 H 20 115/79 97 05/19/22 12:00 05/19/22 10:18 05/19/22 10:00 05/19/22 06:41 05/19/22 08:18 General appearance: Present: no acute distress, well-nourished - EENT Eyes: Present: PERRL, EOM intact ENT: hearing intact, clear oral mucosa - Neck Neck: Present: supple, normal ROM - Respiratory Respiratory effort: normal Respiratory: bilateral: CTA Results - Labs CBC & Chem 7: 05/19/22 12:50 05/19/22 08:20 Labs: Abnormal lab results 05/18/22 05/19/22 05/19/22 Range/Units 17:49 06:00 08:20 Hgb (11.8-15.2) gm/dl Hct (35.5-45.6) % MCV 99 H (84-94) fl MCH 33 H (28-32) pg Plt Count 135 L (140-440) K/mm3 Lymph % (Auto) 12.9 L (13.4-35.0) % [place] % (Auto) 8.0 H (0.0-7.3) % Seg Neutrophils % 79.0 H (40.0-70.0) % Seg Neutrophils # 8.2 H (1.8-7.7) K/mm3 Chloride 107.8 H (98-107) mmol/L Creatinine 0.7 L (0.8-1.3) mg/dL Glucose 117 H (75-100) mg/dL POC Glucose 134 H (70-105) mg/dL Calcium 8.3 L (8.4-10.2) mg/dL 05/19/22 Range/Units 12:50 Hgb 11.7 L (11.8-15.2) gm/dl Hct 34.3 L (35.5-45.6) % MCV (84-94) fl MCH (28-32) pg Plt Count (140-440) K/mm3 Lymph % (Auto) (13.4-35.0) % [place] % (Auto) (0.0-7.3) % Seg Neutrophils % (40.0-70.0) % Seg Neutrophils # (1.8-7.7) K/mm3 Chloride (98-107) mmol/L Creatinine (0.8-1.3) mg/dL Glucose (75-100) mg/dL POC Glucose (70-105) mg/dL Calcium (8.4-10.2) mg/dL Assessment and Plan Post Op observation from shoulder repair in patient with multiple comorbids Transfer to floor Resume home medication regimen
[2022-05-19] MEDS: KETOROLAC 30 MG/1 ML INJ IV PRN ×2 (14:17→20:36)
[2022-05-19] MEDS: MORPHINE 2 MG/1 ML INJ IV PRN ×2 (17:00→22:00)
[2022-05-19] MEDS ORDERED: LACOSAMIDE 150 MG PO SCH (22:00)
[2022-05-20] MEDS: MORPHINE 2 MG/1 ML INJ IV PRN ×2 (06:04→10:03)
[2022-05-20] MEDS ORDERED: METOPROLOL TARTRATE 25 MG TAB PO SCH ×2 (08:00→10:00)
--- NOTE | 2022-05-20 08:06 | Progress Note ---
Assessment and Plan Assessment and plan: History Interval history: This is a 67-year-old male with A. fib, heart failure with reduced EF (20 to 25%) s/p AICD, schizophrenia, severe depression, hypertension, hyperlipidemia, PVD s/p stents to bilateral lower extremities, [place], smoker who had a total left shoulder replacement on 05/18. Patient was hypotensive and was started on low- dose Kian-Synephrine and transferred to the ICU for closer monitoring. Hospital course to date: 05/19: Patient has MIVF running, no acute vents reported overnight. Systolic blood pressures ranging from upper 90s to 110s. Transfer to the floor today. Remove miriam, send stat h/h due to bleeding with getting OOB with PT. 05/20: Patient still in moderate amt of pain. Added percocet for improved pain control. Changed metoprolol to 50 mg po bid dosing due to persistently elevated HR. anticipate d/c in next 24-48hrs. Assessment and plan: This is a 67-year-old male with A. fib, heart failure with reduced EF, AICD in situ, schizophrenia, severe depression, HTN, HLD, PVD, [place], nicotine abuser admitted s/p total left shoulder replacement on 05/18 for hypotension Neuro: h/o schizophrenia, severe depression, seizure disorder -Continue fluoxetine, zyprexa, vimpat -Reorientation as needed -Maintain sleep-wake cycle -aspiration/seizure precautions -As needed analgesia -PT/OT consulted, appreciate recommendation Cardiac: h/o HTN, HFrEF with AICD in stiu, afib, HLD, PVD s/p stents to BLE -Hold home eliquis -Resume home metoprolol -Continue lipitor -Blood pressure monitoring per protocol -s/p kian-synephrine -[facility] consulted, appreciate recommendations Respiratory: h/o [place], smoker -Smoking cessation counseling -Pulmonary hygiene -IS to bedside -Outpatient pulm follow up -SPO2 monitoring per protocol GI: NAD -24 hours + 820 ml -PPI -Cardiac diet -BR: colace : NAD -Renally dose medications -Avoid nephrotoxic medications ID: NAD -Monitor WBC and temperature curve Endo: NAD -Avoid hypoglycemia Heme: NAD -Trend CBC -Transfuse hemoglobin less than 7 -SCDs to BLE while in bed Hospitalist Physical - Constitutional Vitals: Temp Pulse Resp BP Pulse Ox 97.6 F 121 H 22 126/81 96 05/20/22 05:59 05/20/22 05:59 05/20/22 05:59 05/20/22 05:59 05/20/22 05:59 General appearance: Present: mild distress, well-nourished - EENT Eyes: Present: PERRL, EOM intact ENT: hearing intact, clear oral mucosa, dentition normal - Neck Neck: Present: supple, normal ROM - Respiratory Respiratory effort: normal - Cardiovascular Details: tachycardic - Extremities Extremities: no ischemia, No edema HEART Score - HEART Score Age: > 65 Risk factors: 1-2 risk factors Troponin: < normal limit - Critical Actions Critical Actions: 0-3 pts:0.9-1.7%risk of adverse cardiac event.Candidate for discharge Results - Labs CBC & Chem 7: 05/19/22 12:50 05/19/22 08:20 Labs: Laboratory Last Values WBC 10.4 K/mm3 (4.5-11.0) 05/19/22 06:00 RBC 3.74 M/mm3 (3.65-5.03) 05/19/22 06:00 Hgb 11.7 gm/dl (11.8-15.2) L 05/19/22 12:50 Hct 34.3 % (35.5-45.6) L 05/19/22 12:50 MCV 99 fl (84-94) H 05/19/22 06:00 MCH 33 pg (28-32) H 05/19/22 06:00 MCHC 33 % (32-34) 05/19/22 06:00 RDW 14.6 % (13.2-15.2) 05/19/22 06:00 Plt Count 135 K/mm3 (140-440) L 05/19/22 06:00 Lymph % (Auto) 12.9 % (13.4-35.0) L 05/19/22 06:00 [place] % (Auto) 8.0 % (0.0-7.3) H 05/19/22 06:00 Eos % (Auto) 0.0 % (0.0-4.3) 05/19/22 06:00 Baso % (Auto) 0.1 % (0.0-1.8) 05/19/22 06:00 Lymph # (Auto) 1.3 K/mm3 (1.2-5.4) 05/19/22 06:00 [place] # (Auto) 0.8 K/mm3 (0.0-0.8) 05/19/22 06:00 Eos # (Auto) 0.0 K/mm3 (0.0-0.4) 05/19/22 06:00 Baso # (Auto) 0.0 K/mm3 (0.0-0.1) 05/19/22 06:00 Seg Neutrophils % 79.0 % (40.0-70.0) H 05/19/22 06:00 Seg Neutrophils # 8.2 K/mm3 (1.8-7.7) H 05/19/22 06:00 Sodium 140 mmol/L (137-145) D 05/19/22 08:20 Potassium 3.9 mmol/L (3.6-5.0) 05/19/22 08:20 Chloride 107.8 mmol/L (98-107) H 05/19/22 08:20 Carbon Dioxide 22 mmol/L (22-30) 05/19/22 08:20 Anion Gap 14 mmol/L 05/19/22 08:20 BUN 13 mg/dL (9-20) 05/19/22 08:20 Creatinine 0.7 mg/dL (0.8-1.3) L 05/19/22 08:20 Estimated GFR > 60 ml/min 05/19/22 08:20 BUN/Creatinine Ratio 19 % 05/19/22 08:20 Glucose 117 mg/dL (75-100) H 05/19/22 08:20 POC Glucose 134 mg/dL (70-105) H 05/18/22 17:49 Calcium 8.3 mg/dL (8.4-10.2) L 05/19/22 08:20 SARS-CoV-2 (PCR) Negative (Negative) 05/17/22 10:30 Guzman/IV: Voiding Method Urinal Active Medications - Current Medications Current Medications: Generic Name Dose Route Start Last Admin Trade Name Freq PRN Reason Stop Dose Admin Atorvastatin Calcium 20 mg 05/19/22 22:00 05/19/22 21:59 Atorvastatin 20 Mg Tab PO 20 mg QHS [facility] Administration Baclofen 10 mg 05/19/22 05:58 Baclofen 10 Mg Tab PO DAILY PRN Muscle Spasm Docusate Sodium 100 mg 05/19/22 10:00 05/19/22 21:59 Docusate Sodium 100 Mg Cap PO 100 mg BID [facility] Administration Enoxaparin Sodium 40 mg 05/18/22 12:00 05/19/22 10:18 Enoxaparin 40 Mg/0.4 Ml Inj SUB-Q 40 mg QDAY [facility] Administration Fluoxetine HCl 60 mg 05/19/22 10:00 05/19/22 10:16 Fluoxetine 20 Mg Cap PO 60 mg QDAY [facility] Administration Ibuprofen 600 mg 05/18/22 11:00 05/19/22 19:07 Ibuprofen 600 Mg Tab PO 600 mg Q6H PRN Administration Pain, Mild (1-3) Ketorolac Tromethamine 15 mg 05/18/22 11:00 05/19/22 20:36 Ketorolac 30 Mg/1 Ml Inj IV 05/23/22 10:59 15 mg Q6H PRN Administration Pain, Moderate (4-6) Lacosamide 300 mg 05/19/22 22:00 05/19/22 21:59 Lacosamide 100 Mg Tab PO 300 mg QHS [facility] Administration Lacosamide 200 mg 05/19/22 10:00 05/19/22 10:18 Lacosamide 100 Mg Tab PO 200 mg QAM [facility] Administration Metoprolol Succinate 50 mg 05/20/22 10:00 Metoprolol Succinate Xl 50 Mg Tab PO QDAY [facility] Morphine Sulfate 2 mg 05/18/22 10:00 05/20/22 06:04 Morphine 2 Mg/1 Ml Inj IV 2 mg Q4H PRN Administration Pain, Moderate (4-6) Olanzapine 5 mg 05/19/22 10:00 05/19/22 10:19 Olanzapine 5 Mg Tab PO 5 mg DAILY [facility] Administration Pantoprazole Sodium 40 mg 05/19/22 10:00 05/19/22 10:14 Pantoprazole 40 Mg Tab PO 40 mg DAILY [facility] Administration Prazosin HCl 1 mg 05/19/22 10:00 05/19/22 10:18 Prazosin 1 Mg Cap PO 1 mg DAILY [facility] Administration Sodium Chloride 10 ml 05/18/22 10:00 Sodium Chloride 0.9% 10 Ml Flush Syringe IV 05/20/22 09:59 PRN NR
[2022-05-20] MEDS: ENOXAPARIN 40 MG/0.4 ML INJ SUB-Q SCH (09:55)
[2022-05-20] MEDS: DOCUSATE SODIUM 100 MG CAP PO SCH ×2 (09:55→23:14)
[2022-05-20] MEDS: FLUoxetine 20 MG CAP PO SCH (09:55)
[2022-05-20] MEDS: PANTOPRAZOLE 40 MG TAB PO SCH (09:56)
[2022-05-20] MEDS: LACOSAMIDE 100 MG TAB PO SCH ×2 (09:57→23:14)
[2022-05-20] MEDS ORDERED: METOPROLOL SUCCINATE XL 50 MG TAB PO SCH (10:00)
[2022-05-20] MEDS: PRAZOSIN 1 MG CAP PO SCH (10:50)
[2022-05-20] MEDS: KETOROLAC 30 MG/1 ML INJ IV PRN (13:02)
--- NOTE | 2022-05-20 15:45 | Progress Note ---
Assessment and Plan s/p left shoulder replacement continue observation, hopefully dc when medically stable, Subjective Date of service: 05/20/22 Interval history: moved from ICU to regular floor, resting in bed, still with some minor bleeding... Objective Vital signs: Vital Signs - 12hr 05/20/22 05/20/22 05/20/22 04:24 05:00 05:59 Temperature 97.6 F Pulse Rate 121 H Respiratory 20 22 Rate Blood Pressure 126/81 O2 Sat by Pulse 95 99 96 Oximetry 05/20/22 05/20/22 05/20/22 08:45 09:56 10:50 Temperature Pulse Rate 124 H 124 H Respiratory Rate Blood Pressure 117/67 117/67 O2 Sat by Pulse 95 Oximetry Incision: draining Weight bearing status: as tolerated - Labs CBC & BMP: 05/19/22 12:50 05/19/22 08:20
[2022-05-20] MEDS: METOPROLOL TARTRATE 25 MG TAB PO SCH ×2 (16:59→21:38)
[2022-05-20] MEDS ORDERED: METOPROLOL TARTRATE 5 MG/5 ML INJ IV ONE (21:50)
--- NOTE | 2022-05-21 08:06 | Progress Note ---
Assessment and Plan Assessment and plan: History Interval history: This is a 67-year-old male with A. fib, heart failure with reduced EF (20 to 25%) s/p AICD, schizophrenia, severe depression, hypertension, hyperlipidemia, PVD s/p stents to bilateral lower extremities, [place], smoker who had a total left shoulder replacement on 05/18. Patient was hypotensive and was started on low- dose Kian-Synephrine and transferred to the ICU for closer monitoring. Hospital course to date: 05/19: Patient has MIVF running, no acute vents reported overnight. Systolic blood pressures ranging from upper 90s to 110s. Transfer to the floor today. Remove miriam, send stat h/h due to bleeding with getting OOB with PT. 05/20: Patient still in moderate amt of pain. Added percocet for improved pain control. Changed metoprolol to 50 mg po bid dosing due to persistently elevated HR. anticipate d/c in next 24-48hrs. 05/21: HR better controlled. PT recommended home health PT. will consult CM for arrangement and discuss with CM in Am. Assessment and plan: This is a 67-year-old male with A. fib, heart failure with reduced EF, AICD in situ, schizophrenia, severe depression, HTN, HLD, PVD, [place], nicotine abuser admitted s/p total left shoulder replacement on 05/18 for hypotension Neuro: h/o schizophrenia, severe depression, seizure disorder -Continue fluoxetine, zyprexa, vimpat -Reorientation as needed -Maintain sleep-wake cycle -aspiration/seizure precautions -As needed analgesia -PT/OT consulted, appreciate recommendation Cardiac: h/o HTN, HFrEF with AICD in stiu, afib, HLD, PVD s/p stents to BLE -Hold home eliquis -Resume home metoprolol -Continue lipitor -Blood pressure monitoring per protocol -s/p kian-synephrine -CCM consulted, appreciate recommendations Respiratory: h/o [place], smoker -Smoking cessation counseling -Pulmonary hygiene -IS to bedside -Outpatient pulm follow up -SPO2 monitoring per protocol GI: NAD -24 hours + 820 ml -PPI -Cardiac diet -BR: colace : NAD -Renally dose medications -Avoid nephrotoxic medications ID: NAD -Monitor WBC and temperature curve Endo: NAD -Avoid hypoglycemia Heme: NAD -Trend CBC -Transfuse hemoglobin less than 7 -SCDs to BLE while in bed History Interval history: No acute complaints this AM. Shoulder less painful. Hospitalist Physical - Physical exam Narrative exam: General appearance: Present: mild distress, well-nourished - EENT Eyes: Present: PERRL, EOM intact ENT: hearing intact, clear oral mucosa, dentition normal - Neck Neck: Present: supple, normal ROM - Respiratory Respiratory effort: normal - Cardiovascular Details: tachycardic - Extremities Extremities: no ischemia, No edema - Constitutional Vitals: Temp Pulse Resp BP Pulse Ox 97.8 F 102 H 18 114/56 95 05/21/22 05:45 05/21/22 05:45 05/21/22 05:45 05/21/22 05:45 05/21/22 05:45 General appearance: Present: mild distress, well-nourished HEART Score - HEART Score Age: > 65 Risk factors: 1-2 risk factors Troponin: Troponin T < 0.010 ng/mL (0.00-0.029) 05/20/22 22:38 Troponin: < normal limit - Critical Actions Critical Actions: 0-3 pts:0.9-1.7%risk of adverse cardiac event.Candidate for discharge Results - Labs CBC & Chem 7: 05/19/22 12:50 05/19/22 08:20 Labs: Laboratory Last Values WBC 10.4 K/mm3 (4.5-11.0) 05/19/22 06:00 RBC 3.74 M/mm3 (3.65-5.03) 05/19/22 06:00 Hgb 11.7 gm/dl (11.8-15.2) L 05/19/22 12:50 Hct 34.3 % (35.5-45.6) L 05/19/22 12:50 MCV 99 fl (84-94) H 05/19/22 06:00 MCH 33 pg (28-32) H 05/19/22 06:00 MCHC 33 % (32-34) 05/19/22 06:00 RDW 14.6 % (13.2-15.2) 05/19/22 06:00 Plt Count 135 K/mm3 (140-440) L 05/19/22 06:00 Lymph % (Auto) 12.9 % (13.4-35.0) L 05/19/22 06:00 [place] % (Auto) 8.0 % (0.0-7.3) H 05/19/22 06:00 Eos % (Auto) 0.0 % (0.0-4.3) 05/19/22 06:00 Baso % (Auto) 0.1 % (0.0-1.8) 05/19/22 06:00 Lymph # (Auto) 1.3 K/mm3 (1.2-5.4) 05/19/22 06:00 [place] # (Auto) 0.8 K/mm3 (0.0-0.8) 05/19/22 06:00 Eos # (Auto) 0.0 K/mm3 (0.0-0.4) 05/19/22 06:00 Baso # (Auto) 0.0 K/mm3 (0.0-0.1) 05/19/22 06:00 Seg Neutrophils % 79.0 % (40.0-70.0) H 05/19/22 06:00 Seg Neutrophils # 8.2 K/mm3 (1.8-7.7) H 05/19/22 06:00 Sodium 140 mmol/L (137-145) D 05/19/22 08:20 Potassium 3.9 mmol/L (3.6-5.0) 05/19/22 08:20 Chloride 107.8 mmol/L (98-107) H 05/19/22 08:20 Carbon Dioxide 22 mmol/L (22-30) 05/19/22 08:20 Anion Gap 14 mmol/L 05/19/22 08:20 BUN 13 mg/dL (9-20) 05/19/22 08:20 Creatinine 0.7 mg/dL (0.8-1.3) L 05/19/22 08:20 Estimated GFR > 60 ml/min 05/19/22 08:20 BUN/Creatinine Ratio 19 % 05/19/22 08:20 Glucose 117 mg/dL (75-100) H 05/19/22 08:20 POC Glucose 138 mg/dL (70-105) H 05/20/22 21:28 Calcium 8.3 mg/dL (8.4-10.2) L 05/19/22 08:20 Troponin T < 0.010 ng/mL (0.00-0.029) 05/20/22 22:38 SARS-CoV-2 (PCR) Negative (Negative) 05/17/22 10:30 Guzman/IV: Voiding Method Urinal Active Medications - Current Medications Current Medications: Generic Name Dose Route Start Last Admin Trade Name Freq PRN Reason Stop Dose Admin Atorvastatin Calcium 20 mg 05/19/22 22:00 05/20/22 23:14 Atorvastatin 20 Mg Tab PO 20 mg QHS [facility] Administration Baclofen 10 mg 05/19/22 05:58 Baclofen 10 Mg Tab PO DAILY PRN Muscle Spasm Docusate Sodium 100 mg 05/19/22 10:00 05/20/22 23:14 Docusate Sodium 100 Mg Cap PO 100 mg BID [facility] Administration Enoxaparin Sodium 40 mg 05/18/22 12:00 05/20/22 09:55 Enoxaparin 40 Mg/0.4 Ml Inj SUB-Q 40 mg QDAY [facility] Administration Fluoxetine HCl 60 mg 05/19/22 10:00 05/20/22 09:55 Fluoxetine 20 Mg Cap PO 60 mg QDAY [facility] Administration Ibuprofen 600 mg 05/18/22 11:00 05/19/22 19:07 Ibuprofen 600 Mg Tab PO 600 mg Q6H PRN Administration Pain, Mild (1-3) Ketorolac Tromethamine 15 mg 05/18/22 11:00 05/20/22 13:02 Ketorolac 30 Mg/1 Ml Inj IV 05/23/22 10:59 15 mg Q6H PRN Administration Pain, Moderate (4-6) Lacosamide 300 mg 05/19/22 22:00 05/20/22 23:14 Lacosamide 100 Mg Tab PO 300 mg QHS [facility] Administration Lacosamide 200 mg 05/19/22 10:00 05/20/22 09:57 Lacosamide 100 Mg Tab PO 200 mg QAM [facility] Administration Metoprolol Tartrate 25 mg 05/20/22 14:00 05/20/22 21:38 Metoprolol Tartrate 25 Mg Tab PO 25 mg TID [facility] Administration Morphine Sulfate 2 mg 05/18/22 10:00 05/20/22 10:03 Morphine 2 Mg/1 Ml Inj IV 2 mg Q4H PRN Administration Pain, Moderate (4-6) Olanzapine 5 mg 05/19/22 10:00 05/20/22 09:56 Olanzapine 5 Mg Tab PO 5 mg DAILY [facility] Administration Oxycodone/Acetaminophen 1 tab 05/20/22 13:09 Oxycodone /Acetaminophen 5-325mg Tab PO Q6H PRN Pain, Moderate (4-6) Pantoprazole Sodium 40 mg 05/19/22 10:00 05/20/22 09:56 Pantoprazole 40 Mg Tab PO 40 mg DAILY [facility] Administration Prazosin HCl 1 mg 05/19/22 10:00 05/20/22 10:50 Prazosin 1 Mg Cap PO 1 mg DAILY [facility] Administration
[2022-05-21] MEDS: oxyCODONE /ACETAMINOPHEN 5-325MG TAB PO PRN ×2 (10:03→21:59)
[2022-05-21] MEDS: DOCUSATE SODIUM 100 MG CAP PO SCH ×2 (10:03→21:55)
[2022-05-21] MEDS: METOPROLOL TARTRATE 25 MG TAB PO SCH ×3 (10:03→21:54)
[2022-05-21] MEDS: FLUoxetine 20 MG CAP PO SCH (10:04)
[2022-05-21] MEDS: LACOSAMIDE 100 MG TAB PO SCH ×2 (10:04→21:53)
[2022-05-21] MEDS: PRAZOSIN 1 MG CAP PO SCH (10:04)
[2022-05-21] MEDS: PANTOPRAZOLE 40 MG TAB PO SCH (10:04)
[2022-05-21] MEDS: ENOXAPARIN 40 MG/0.4 ML INJ SUB-Q SCH (10:05)
--- NOTE | 2022-05-21 14:44 | Electrocardiograph Report ---
[facility] Test Date: 2022-05-20 Test Time: 21:48:31 Pat Name: GAYATHRI COATES Department: Room: A373 1 Gender: M [employer]ender: CHRISSY : 1955 Requested By: GAUDENCIO MEJIA Order Number: [id number] Reading MD: Fanny Adame Measurements Intervals [place] Rate: 124 P: [place]: QRS: 44 QRSD: 130 T: 134 QT: 395 QTc: 568 Interpretive Statements Atrial flutter with predominant 2:1 AV block Nonspecific intraventricular conduction delay Inferior infarct, old Lateral leads are also involved No previous ECG available for comparison Electronically Signed On 05-21-2022 14:44:32 EDT by Fanny Adame
--- NOTE | 2022-05-22 08:03 | Discharge Summary ---
Providers - Providers Date of Admission: 05/19/22 09:00 Date of discharge: 05/22/22 Attending physician: GAUDENCIO MEJIA MD 05/18/22 09:59 Consult to Case Management [CONS] Routine Services Needed at Discharge: Other Notified:: yes Additional Physician Instructions: Assess Discharge needs. Physical Therapy Evaluation and Treat [CONS] Routine Comment: Reason For Exam: Eval and Treat 05/18/22 17:45 Consult to Physician [CONS] Routine Comment: Consulting Provider: SAMUEL VARGAS Physician Instructions: Reason For Exam: MEDICAL MANAGEMENT 05/18/22 18:44 Consult to Physician [CONS] Routine Comment: Consulting Provider: SAMUEL VARGAS Physician Instructions: Reason For Exam: Hypotension,[place] 05/19/22 09:36 Occupational Therapy Evaluate and Treat [CONS] Routine Comment: Reason For Exam: post shoulder surgery 05/21/22 12:06 Consult to Case Management [CONS] Routine Services Needed at Discharge: Home Health Services Notified:: CM Comment:: home health PT Primary care physician: RAKESH FINNEGAN MD Hospitalization Reason for admission: shoulder replacement Hospital course: Interval history: This is a 67-year-old male with A. fib, heart failure with reduced EF (20 to 25%) s/p AICD, schizophrenia, severe depression, hypertension, hyperlipidemia, PVD s/p stents to bilateral lower extremities, [place], smoker who had a total left shoulder replacement on 05/18. Patient was hypotensive and was started on low- dose Kian-Synephrine and transferred to the ICU for closer monitoring. Hospital course to date: 05/19: Patient has MIVF running, no acute vents reported overnight. Systolic blood pressures ranging from upper 90s to 110s. Transfer to the floor today. Remove miriam, send stat h/h due to bleeding with getting OOB with PT. 05/20: Patient still in moderate amt of pain. Added percocet for improved pain control. Changed metoprolol to 50 mg po bid dosing due to persistently elevated HR. anticipate d/c in next 24-48hrs. 05/21: HR better controlled. PT recommended home health PT. will consult CM for arrangement and discuss with CM in Am. 05/22 Vital signs improved. HR 99 on last check. Will discharge today. Rx for metoprolol 50 mg po tid and rx for percocet. Patient will be discharged home once [facility] PT service set up by DOMIN[facility]. Advised patient to follow up OP with Dr. Romero in his clinic and his OP primary care physician. Patient also advised to follow up with his outpatient heel cementer machine regarding his chronic atrial fibrillation Assessment and plan: This is a 67-year-old male with A. fib, heart failure with reduced EF, AICD in situ, schizophrenia, severe depression, HTN, HLD, PVD, [place], nicotine abuser admitted s/p total left shoulder replacement on 05/18 for hypotension Neuro: h/o schizophrenia, severe depression, seizure disorder -Continue fluoxetine, zyprexa, vimpat -Reorientation as needed -Maintain sleep-wake cycle -aspiration/seizure precautions -As needed analgesia -PT/OT consulted, appreciate recommendation Cardiac: h/o HTN, HFrEF with AICD in stiu, afib, HLD, PVD s/p stents to BLE, post operative hypotension (resolved), chronic atrial fibrillation - home eliquis -Resume home metoprolol -Continue lipitor -Blood pressure monitoring per protocol -s/p kian-synephrine -CCM consulted, appreciate recommendations Respiratory: h/o [place], smoker -Smoking cessation counseling -Pulmonary hygiene -IS to bedside -Outpatient pulm follow up -SPO2 monitoring per protocol GI: NAD -24 hours + 820 ml -PPI -Cardiac diet -BR: colace : NAD -Renally dose medications -Avoid nephrotoxic medications ID: NAD -Monitor WBC and temperature curve Endo: NAD -Avoid hypoglycemia Heme: NAD -Trend CBC -Transfuse hemoglobin less than 7 -SCDs to BLE while in bed MSK: Left shoulder replacement - shoulder surgery on 05/[address] Romero - PT/OT: recommend [facility] PT service. Disposition: HOME / SELF CARE / HOMELESS Final Discharge Diagnosis (Prints w/discharge instructions): shoulder surgery, chronic atrial fibrillation, post operative hypotension Time spent for discharge: 35 Core Measure Documentation - Palliative Care Palliative Care/ Comfort Measures: Not Applicable - Core Measures Any of the following diagnoses?: none Exam - Physical Exam Narrative exam: General appearance: Present: mild distress, well-nourished - EENT Eyes: Present: PERRL, EOM intact ENT: hearing intact, clear oral mucosa, dentition normal - Neck Neck: Present: supple, normal ROM - Respiratory Respiratory effort: normal - Cardiovascular Details: tachycardic, now improved - Extremities Extremities: no ischemia, No edema - Constitutional Vitals: Temp Pulse Resp BP Pulse Ox 98.5 F 99 H 16 104/68 93 05/22/22 04:09 05/22/22 04:09 05/22/22 05:00 05/22/22 04:09 05/22/22 05:00 Plan Follow up with: RAKESH FINNEGAN MD [Primary Care Provider] - 7 Days JOSSELINE ROMERO MD [Staff Physician] - 7 Days Prescriptions: Metoprolol [Lopressor TAB] 50 mg PO TID 30 Days #90 tablet oxyCODONE /ACETAMINOPHEN [Percocet 5/325 mg] 1 tab PO Q6H PRN 3 Days #12 tablet PRN Reason: Pain, Moderate (4-6)
[2022-05-22] MEDS: oxyCODONE /ACETAMINOPHEN 5-325MG TAB PO PRN (09:48)
[2022-05-22] MEDS: PRAZOSIN 1 MG CAP PO SCH (09:48)
[2022-05-22] MEDS: LACOSAMIDE 100 MG TAB PO SCH ×2 (09:48→21:25)
[2022-05-22] MEDS: PANTOPRAZOLE 40 MG TAB PO SCH (09:49)
[2022-05-22] MEDS: ENOXAPARIN 40 MG/0.4 ML INJ SUB-Q SCH (09:49)
[2022-05-22] MEDS: FLUoxetine 20 MG CAP PO SCH (09:49)
[2022-05-22] MEDS: DOCUSATE SODIUM 100 MG CAP PO SCH ×2 (09:50→21:25)
[2022-05-22] MEDS: METOPROLOL TARTRATE 25 MG TAB PO SCH ×3 (09:52→21:26)
--- NOTE | 2022-05-22 14:11 | XRay Report ---
LEFT SHOULDER 3 VIEWS INDICATION / CLINICAL INFORMATION: post op evaluation COMPARISON: Left shoulder series from 05/18/2022. FINDINGS: BONES and JOINT(S): Unchanged proximal left humeral fracture with stable positioning of the left shou lder arthroplasty. SOFT TISSUES: Expected postoperative changes are seen along the left shoulder with persistent probabl e atelectasis along the mid/lower left lung. No new significant abnormality. ADDITIONAL FINDINGS: None. IMPRESSION: Stable appearance of the left shoulder with additional findings as above. Signer Name: Junior Padilla MD Signed: 05/22/2022 2:07 PM Workstation Name: [id number]
--- NOTE | 2022-05-22 18:16 | Cat Scan Report ---
CT left shoulder with contrast INDICATION / CLINICAL INFORMATION: Left shoulder pain. Recent surgery. TECHNIQUE: CT of the left shoulder was performed following 80 mL Omnipaque [address] scans at this location are performed using CT dose reduction for ALARA by means of automated exposure control. COMPARISON: None available. FINDINGS: There is postoperative change consistent with recent placement of a reverse left shoulder a rthroplasty. There is anterior dislocation of the humeral component with respect to the glenoid prost hesis. There is significant surrounding edema is well as anterior fluid collection with some intermix ed gas. The fluid collection seen superior and anterior to the arthroplasty measures about 6.4 x 5.7 cm. There is a chronic appearing comminuted fracture involving the residual proximal humerus from rem ote injury. Limited review of the lungs demonstrate extensive groundglass densities throughout the visualized lef t upper and left lower lobe IMPRESSION: 1. Anterior dislocation of the reverse shoulder arthroplasty, as above 2. 6 x 7 cm collection identified anterior and superior to the arthroplasty with intermixed fluid and gas. This could be secondary to recent postoperative hematoma but underlying infection cannot be exc luded. 3. Fairly extensive groundglass opacity throughout the left lung suspicious for atypical pneumonia Signer Name: Flip Roland MD Signed: 05/22/2022 6:12 PM Workstation Name: [email or web address]
--- NOTE | 2022-05-22 21:41 | Progress Note ---
Assessment and Plan s/p reverse total shoulder replacement, dislocated humeral component, will require closed possible open reduction left shoulder...will require medical clearance... Subjective Date of service: 05/22/22 Interval history: patient seen earlier where wound inspected and dressing changed, CT scan ordered and show anterior dislocation humeral component... Objective Vital signs: Vital Signs - 12hr 05/22/22 05/22/22 05/22/22 09:52 10:00 12:32 Temperature 98.5 F Pulse Rate 105 H 93 H Respiratory 20 Rate Blood Pressure 93/57 O2 Sat by Pulse 94 95 Oximetry 05/22/22 05/22/22 05/22/22 13:58 15:05 20:43 Temperature Pulse Rate 95 H Respiratory Rate Blood Pressure O2 Sat by Pulse 95 95 Oximetry 05/22/22 21:18 Temperature 99.5 F Pulse Rate 109 H Respiratory 20 Rate Blood Pressure 99/66 O2 Sat by Pulse 94 Oximetry Incision: clean and dry - Labs CBC & BMP: 05/19/22 12:50 05/19/22 08:20
[2022-05-23] MEDS: LACOSAMIDE 100 MG TAB PO SCH ×2 (10:05→22:53)
[2022-05-23] MEDS: PRAZOSIN 1 MG CAP PO SCH (10:05)
[2022-05-23] MEDS: ENOXAPARIN 40 MG/0.4 ML INJ SUB-Q SCH (10:06)
[2022-05-23] MEDS: FLUoxetine 20 MG CAP PO SCH (10:06)
[2022-05-23] MEDS: PANTOPRAZOLE 40 MG TAB PO SCH (10:06)
[2022-05-23] MEDS: METOPROLOL TARTRATE 25 MG TAB PO SCH ×3 (10:06→22:54)
--- NOTE | 2022-05-23 10:12 | Progress Note ---
Assessment and Plan Assessment and plan: This is a 67-year-old male with A. fib, heart failure with reduced EF (20 to 25%) s/p AICD, schizophrenia, severe depression, hypertension, hyperlipidemia, PVD s/p stents to bilateral lower extremities, [place], smoker who had a total left shoulder replacement on 05/18. Patient was hypotensive and was started on low- dose Kian-Synephrine and transferred to the ICU for closer monitoring. Assessment and plan: Left lower lobe pneumonia h/o schizophrenia severe depression Continue fluoxetine, zyprexa seizure disorder -Continue vimpat HTN -Blood pressure monitoring per protocol -Resume home metoprolol HFrEF with AICD in situ afib -Hold home eliquis HLD -Continue lipitor PVD s/p stents to BLE [place] -Pulmonary hygiene -IS to bedside -Outpatient pulm follow up -SPO2 monitoring per protocol Tobacco abuse -Smoking cessation counseling Hospital course to date: 05/19: Patient has MIVF running, no acute vents reported overnight. Systolic blood pressures ranging from upper 90s to 110s. Transfer to the floor today. Remove miriam, send stat h/h due to bleeding with getting OOB with PT. 05/20: Patient still in moderate amt of pain. Added percocet for improved pain c ontrol. Changed metoprolol to 50 mg po bid dosing due to persistently elevated HR. anticipate d/c in next 24-48hrs. 05/21: HR better controlled. PT recommended home health PT. will consult CM for arrangement and discuss with CM in Am. 05/22: CT scan ordered and show anterior dislocation humeral component. S/p reverse total shoulder replacement, dislocated humeral component, will require closed possible open reduction left shoulder 05/23: Chest x-ray reveals left lower lobe opacity. Patient does report cough. We will initiate IV antibiotics for left lower lobe pneumonia History Interval history: No new issues overnight Hospitalist Physical - Constitutional Vitals: Temp Pulse Resp BP Pulse Ox 99.0 F 113 H 22 109/70 96 05/23/22 05:26 05/23/22 05:26 05/23/22 05:26 05/23/22 05:26 05/23/22 08:44 General appearance: Present: no acute distress, well-nourished - EENT Eyes: Present: PERRL, EOM intact ENT: hearing intact, clear oral mucosa, dentition normal - Neck Neck: Present: supple, normal ROM - Respiratory Respiratory effort: normal Respiratory: bilateral: CTA - Cardiovascular Rhythm: regular Heart Sounds: Present: S1 & S2. Absent: gallop, rub - Extremities Extremities: no ischemia, No edema, Full ROM - Abdominal General gastrointestinal: soft, non-tender, non-distended, normal bowel sounds - Integumentary Integumentary: Present: clear, warm, dry - Neurologic Neurologic: CNII-XII intact, moves all extremities HEART Score - HEART Score Age: > 65 Risk factors: 1-2 risk factors Troponin: Troponin T < 0.010 ng/mL (0.00-0.029) 05/20/22 22:38 Troponin: < normal limit - Critical Actions Critical Actions: 0-3 pts:0.9-1.7%risk of adverse cardiac event.Candidate for discharge Results - Labs CBC & Chem 7: 05/19/22 12:50 05/19/22 08:20 Labs: Laboratory Last Values WBC 10.4 K/mm3 (4.5-11.0) 05/19/22 06:00 RBC 3.74 M/mm3 (3.65-5.03) 05/19/22 06:00 Hgb 11.7 gm/dl (11.8-15.2) L 05/19/22 12:50 Hct 34.3 % (35.5-45.6) L 05/19/22 12:50 MCV 99 fl (84-94) H 05/19/22 06:00 MCH 33 pg (28-32) H 05/19/22 06:00 MCHC 33 % (32-34) 05/19/22 06:00 RDW 14.6 % (13.2-15.2) 05/19/22 06:00 Plt Count 135 K/mm3 (140-440) L 05/19/22 06:00 Lymph % (Auto) 12.9 % (13.4-35.0) L 05/19/22 06:00 [place] % (Auto) 8.0 % (0.0-7.3) H 05/19/22 06:00 Eos % (Auto) 0.0 % (0.0-4.3) 05/19/22 06:00 Baso % (Auto) 0.1 % (0.0-1.8) 05/19/22 06:00 Lymph # (Auto) 1.3 K/mm3 (1.2-5.4) 05/19/22 06:00 [place] # (Auto) 0.8 K/mm3 (0.0-0.8) 05/19/22 06:00 Eos # (Auto) 0.0 K/mm3 (0.0-0.4) 05/19/22 06:00 Baso # (Auto) 0.0 K/mm3 (0.0-0.1) 05/19/22 06:00 Seg Neutrophils % 79.0 % (40.0-70.0) H 05/19/22 06:00 Seg Neutrophils # 8.2 K/mm3 (1.8-7.7) H 05/19/22 06:00 Sodium 140 mmol/L (137-145) D 05/19/22 08:20 Potassium 3.9 mmol/L (3.6-5.0) 05/19/22 08:20 Chloride 107.8 mmol/L (98-107) H 05/19/22 08:20 Carbon Dioxide 22 mmol/L (22-30) 05/19/22 08:20 Anion Gap 14 mmol/L 05/19/22 08:20 BUN 13 mg/dL (9-20) 05/19/22 08:20 Creatinine 0.7 mg/dL (0.8-1.3) L 05/19/22 08:20 Estimated GFR > 60 ml/min 05/19/22 08:20 BUN/Creatinine Ratio 19 % 05/19/22 08:20 Glucose 117 mg/dL (75-100) H 05/19/22 08:20 POC Glucose 138 mg/dL (70-105) H 05/20/22 21:28 Calcium 8.3 mg/dL (8.4-10.2) L 05/19/22 08:20 Troponin T < 0.010 ng/mL (0.00-0.029) 05/20/22 22:38 SARS-CoV-2 (PCR) Negative (Negative) 05/17/22 10:30 Guzman/IV: Voiding Method Condom Catheter Active Medications - Current Medications Current Medications: Generic Name Dose Route Start Last Admin Trade Name Freq PRN Reason Stop Dose Admin Atorvastatin Calcium 20 mg 05/19/22 22:00 05/22/22 21:25 Atorvastatin 20 Mg Tab PO 20 mg QHS LORRAINE Administration Baclofen 10 mg 05/19/22 05:58 Baclofen 10 Mg Tab PO DAILY PRN Muscle Spasm Docusate Sodium 100 mg 05/19/22 10:00 05/22/22 21:25 Docusate Sodium 100 Mg Cap PO 100 mg BID LORRAINE Administration Enoxaparin Sodium 40 mg 05/18/22 12:00 05/22/22 09:49 Enoxaparin 40 Mg/0.4 Ml Inj SUB-Q 40 mg QDAY LORRAINE Administration Fluoxetine HCl 60 mg 05/19/22 10:00 05/22/22 09:49 Fluoxetine 20 Mg Cap PO 60 mg QDAY LORRAINE Administration Ibuprofen 600 mg 05/18/22 11:00 05/19/22 19:07 Ibuprofen 600 Mg Tab PO 600 mg Q6H PRN Administration Pain, Mild (1-3) Ketorolac Tromethamine 15 mg 05/18/22 11:00 05/20/22 13:02 Ketorolac 30 Mg/1 Ml Inj IV 05/23/22 10:59 15 mg Q6H PRN Administration Pain, Moderate (4-6) Lacosamide 300 mg 05/19/22 22:00 05/22/22 21:25 Lacosamide 100 Mg Tab PO 300 mg QHS LORRAINE Administration Lacosamide 200 mg 05/19/22 10:00 05/22/22 09:48 Lacosamide 100 Mg Tab PO 200 mg QAM LORRAINE Administration Metoprolol Tartrate 50 mg 05/21/22 12:12 05/22/22 21:26 Metoprolol Tartrate 25 Mg Tab PO 50 mg TID LORRAINE Administration Morphine Sulfate 2 mg 05/18/22 10:00 05/20/22 10:03 Morphine 2 Mg/1 Ml Inj IV 2 mg Q4H PRN Administration Pain, Moderate (4-6) Olanzapine 5 mg 05/19/22 10:00 05/22/22 09:50 Olanzapine 5 Mg Tab PO 5 mg DAILY LORRAINE Administration Oxycodone/Acetaminophen 1 tab 05/20/22 13:09 05/22/22 09:48 Oxycodone /Acetaminophen 5-325mg Tab PO 1 tab Q6H PRN Administration Pain, Moderate (4-6) Pantoprazole Sodium 40 mg 05/19/22 10:00 05/22/22 09:49 Pantoprazole 40 Mg Tab PO 40 mg DAILY LORRAINE Administration Prazosin HCl 1 mg 05/19/22 10:00 05/22/22 09:48 Prazosin 1 Mg Cap PO 1 mg DAILY LORRAINE Administration
[2022-05-23] MEDS ORDERED: cefTRIAXone/NS 1 GM/50 ML 1 GM/50 ML BAG IV SCH (11:00)
[2022-05-23] MEDS: DOCUSATE SODIUM 100 MG CAP PO SCH ×2 (12:35→22:53)
[2022-05-23] MEDS: cefTRIAXone/NS 2 GM/100 ML 2 GM/100 ML BAG IV SCH (12:36)
[2022-05-23] MEDS: oxyCODONE /ACETAMINOPHEN 5-325MG TAB PO PRN (18:46)
[2022-05-24 05:14] LABS: Basophils % (Auto) 0.1 % (0.0-1.8); Eosinophils # (Auto) 0.1 K/mm3 (0.0-0.4); Eosinophils % (Auto) 1.3 % (0.0-4.3); Hematocrit 28.8 % (35.5-45.6); Hemoglobin 9.8 gm/dl (11.8-15.2); Lymphocytes # (Auto) 1.6 K/mm3 (1.2-5.4); Lymphocytes % (Auto) 20.8 % (13.4-35.0); Mean Corpuscular HGB Conc 34 % (32-34); Mean Corpuscular Volume 97 fl (84-94); Monocytes # (Auto) 0.9 K/mm3 (0.0-0.8); Monocytes % (Auto) 11.6 % (0.0-7.3); Platelet Count 168 K/mm3 (140-440); Red Blood Count 2.98 M/mm3 (3.65-5.03); Red Cell Distribution Width 14.2 % (13.2-15.2)
[2022-05-24 05:16] LABS: Blood Urea Nitrogen 13 mg/dL (9-20); Calcium 8.4 mg/dL (8.4-10.2); Hemolysis Index 4
[2022-05-24 05:43] LABS: BUN/Creatinine Ratio 19
[2022-05-24] MEDS: ENOXAPARIN 40 MG/0.4 ML INJ SUB-Q SCH (09:13)
[2022-05-24] MEDS: PRAZOSIN 1 MG CAP PO SCH (09:13)
[2022-05-24] MEDS: METOPROLOL TARTRATE 25 MG TAB PO SCH ×3 (09:14→20:41)
[2022-05-24] MEDS: oxyCODONE /ACETAMINOPHEN 5-325MG TAB PO PRN (09:14)
[2022-05-24] MEDS: LACOSAMIDE 100 MG TAB PO SCH ×2 (09:14→21:11)
[2022-05-24] MEDS: FLUoxetine 20 MG CAP PO SCH (09:14)
[2022-05-24] MEDS: PANTOPRAZOLE 40 MG TAB PO SCH (09:14)
[2022-05-24] MEDS: DOCUSATE SODIUM 100 MG CAP PO SCH ×2 (09:22→21:11)
--- NOTE | 2022-05-24 09:50 | Progress Note ---
Assessment and Plan Assessment and plan: This is a 67-year-old male with A. fib, heart failure with reduced EF (20 to 25%) s/p AICD, schizophrenia, severe depression, hypertension, hyperlipidemia, PVD s/p stents to bilateral lower extremities, [place], smoker who had a total left shoulder replacement on 05/18. Patient was hypotensive and was started on low- dose Kian-Synephrine and transferred to the ICU for closer monitoring. Hypertension has now resolved Left lower lobe pneumonia h/o schizophrenia severe depression Continue fluoxetine, zyprexa seizure disorder -Continue vimpat HTN -Blood pressure monitoring per protocol -Resume home metoprolol HFrEF with AICD in situ afib -Hold home eliquis HLD -Continue lipitor PVD s/p stents to BLE [place] -Pulmonary hygiene -IS to bedside -Outpatient pulm follow up -SPO2 monitoring per protocol Tobacco abuse -Smoking cessation counseling Hospital course to date: 05/19: Patient has MIVF running, no acute vents reported overnight. Systolic blood pressures ranging from upper 90s to 110s. Transfer to the floor today. Remove miriam, send stat h/h due to bleeding with getting OOB with PT. 05/20: Patient still in moderate amt of pain. Added percocet for improved pain control. Changed metoprolol to 50 mg po bid dosing due to persistently elevated HR. anticipate d/c in next 24-48hrs. 05/21: HR better controlled. PT recommended home health PT. will consult CM for arrangement and discuss with CM in Am. 05/22: CT scan ordered and show anterior dislocation humeral component. S/p reverse total shoulder replacement, dislocated humeral component, will require c losed possible open reduction left shoulder 05/23: Chest x-ray reveals left lower lobe opacity. Patient does report cough. We will initiate IV antibiotics for left lower lobe pneumonia 05/24: We will obtain cardiology consultation for medical clearance regarding close possible open reduction left shoulder. Continue supportive care History Interval history: No new issues overnight Hospitalist Physical - Constitutional Vitals: Temp Pulse Resp BP Pulse Ox 99.0 F 106 H 20 114/67 92 05/24/22 05:56 05/24/22 05:56 05/24/22 05:56 05/24/22 05:56 05/24/22 05:56 General appearance: Present: no acute distress, well-nourished - EENT Eyes: Present: PERRL, EOM intact ENT: hearing intact, clear oral mucosa, dentition normal - Neck Neck: Present: supple, normal ROM - Respiratory Respiratory effort: normal Respiratory: bilateral: CTA - Cardiovascular Rhythm: regular Heart Sounds: Present: S1 & S2. Absent: gallop, rub - Extremities Extremities: no ischemia, No edema, Full ROM - Abdominal General gastrointestinal: soft, non-tender, non-distended, normal bowel sounds - Integumentary Integumentary: Present: clear, warm, dry - Neurologic Neurologic: CNII-XII intact, moves all extremities HEART Score - HEART Score Age: > 65 Risk factors: 1-2 risk factors Troponin: Troponin T < 0.010 ng/mL (0.00-0.029) 05/20/22 22:38 Troponin: < normal limit - Critical Actions Critical Actions: 0-3 pts:0.9-1.7%risk of adverse cardiac event.Candidate for discharge Results - Labs CBC & Chem 7: 05/24/22 04:40 05/24/22 04:40 Labs: Laboratory Last Values WBC 7.9 K/mm3 (4.5-11.0) 05/24/22 04:40 RBC 2.98 M/mm3 (3.65-5.03) L 05/24/22 04:40 Hgb 9.8 gm/dl (11.8-15.2) L 05/24/22 04:40 Hct 28.8 % (35.5-45.6) L 05/24/22 04:40 MCV 97 fl (84-94) H 05/24/22 04:40 MCH 33 pg (28-32) H 05/24/22 04:40 MCHC 34 % (32-34) 05/24/22 04:40 RDW 14.2 % (13.2-15.2) 05/24/22 04:40 Plt Count 168 K/mm3 (140-440) 05/24/22 04:40 Lymph % (Auto) 20.8 % (13.4-35.0) 05/24/22 04:40 [place] % (Auto) 11.6 % (0.0-7.3) H 05/24/22 04:40 Eos % (Auto) 1.3 % (0.0-4.3) 05/24/22 04:40 Baso % (Auto) 0.1 % (0.0-1.8) 05/24/22 04:40 Lymph # (Auto) 1.6 K/mm3 (1.2-5.4) 05/24/22 04:40 [place] # (Auto) 0.9 K/mm3 (0.0-0.8) H 05/24/22 04:40 Eos # (Auto) 0.1 K/mm3 (0.0-0.4) 05/24/22 04:40 Baso # (Auto) 0.0 K/mm3 (0.0-0.1) 05/24/22 04:40 Seg Neutrophils % 66.2 % (40.0-70.0) 05/24/22 04:40 Seg Neutrophils # 5.2 K/mm3 (1.8-7.7) 05/24/22 04:40 Sodium 133 mmol/L (137-145) L 05/24/22 04:40 Potassium 3.2 mmol/L (3.6-5.0) L 05/24/22 04:40 Chloride 100.2 mmol/L (98-107) 05/24/22 04:40 Carbon Dioxide 21 mmol/L (22-30) L 05/24/22 04:40 Anion Gap 15 mmol/L 05/24/22 04:40 BUN 13 mg/dL (9-20) 05/24/22 04:40 Creatinine 0.7 mg/dL (0.8-1.3) L 05/24/22 04:40 Estimated GFR > 60 ml/min 05/24/22 04:40 BUN/Creatinine Ratio 19 % 05/24/22 04:40 Glucose 105 mg/dL (75-100) H 05/24/22 04:40 POC Glucose 138 mg/dL (70-105) H 05/20/22 21:28 Calcium 8.4 mg/dL (8.4-10.2) 05/24/22 04:40 Troponin T < 0.010 ng/mL (0.00-0.029) 05/20/22 22:38 SARS-CoV-2 (PCR) Negative (Negative) 05/17/22 10:30 Guzman/IV: Voiding Method Toilet Active Medications - Current Medications Current Medications: Generic Name Dose Route Start Last Admin Trade Name Freq PRN Reason Stop Dose Admin Atorvastatin Calcium 20 mg 05/19/22 22:00 05/23/22 22:53 Atorvastatin 20 Mg Tab PO 20 mg QHS LORRAINE Administration Baclofen 10 mg 05/19/22 05:58 05/24/22 09:15 Baclofen 10 Mg Tab PO 10 mg DAILY PRN Administration Muscle Spasm Docusate Sodium 100 mg 05/19/22 10:00 05/24/22 09:22 Docusate Sodium 100 Mg Cap PO 100 mg BID LORRAINE Administration Enoxaparin Sodium 40 mg 05/18/22 12:00 05/24/22 09:13 Enoxaparin 40 Mg/0.4 Ml Inj SUB-Q 40 mg QDAY LORRAINE Administration Fluoxetine HCl 60 mg 05/19/22 10:00 05/24/22 09:14 Fluoxetine 20 Mg Cap PO 60 mg QDAY LORRAINE Administration Ceftriaxone Sodium 2 gm in 100 mls @ 200 mls/hr 05/23/22 11:00 05/23/22 12:36 Rocephin/Ns 2 Gm/100 Ml IV 200 mls/hr Q24H LORRAINE Administration Ibuprofen 600 mg 05/18/22 11:00 05/19/22 19:07 Ibuprofen 600 Mg Tab PO 600 mg Q6H PRN Administration Pain, Mild (1-3) Lacosamide 300 mg 05/19/22 22:00 05/23/22 22:53 Lacosamide 100 Mg Tab PO 300 mg QHS LORRAINE Administration Lacosamide 200 mg 05/19/22 10:00 05/24/22 09:14 Lacosamide 100 Mg Tab PO 200 mg QAM LORRAINE Administration Metoprolol Tartrate 50 mg 05/21/22 12:12 05/24/22 09:14 Metoprolol Tartrate 25 Mg Tab PO 50 mg TID LORRAINE Administration Morphine Sulfate 2 mg 05/18/22 10:00 05/20/22 10:03 Morphine 2 Mg/1 Ml Inj IV 2 mg Q4H PRN Administration Pain, Moderate (4-6) Olanzapine 5 mg 05/19/22 10:00 05/24/22 09:22 Olanzapine 5 Mg Tab PO 5 mg DAILY LORRAINE Administration Oxycodone/Acetaminophen 1 tab 05/20/22 13:09 05/24/22 09:14 Oxycodone /Acetaminophen 5-325mg Tab PO 1 tab Q6H PRN Administration Pain, Moderate (4-6) Pantoprazole Sodium 40 mg 05/19/22 10:00 05/24/22 09:14 Pantoprazole 40 Mg Tab PO 40 mg DAILY LORRAINE Administration Prazosin HCl 1 mg 05/19/22 10:00 05/24/22 09:13 Prazosin 1 Mg Cap PO 1 mg DAILY LORRAINE Administration
[2022-05-24] MEDS: cefTRIAXone/NS 2 GM/100 ML 2 GM/100 ML BAG IV SCH (11:37)
--- NOTE | 2022-05-24 11:40 | Consultation ---
History of Present Illness Consult date: 05/24/22 Requesting physician: FRANK VAUGHN Consult reason: pre op evaluation History of present illness: 67-year-old male with history of coronary artery disease status post bypass surgery, LV systolic dysfunction with ejection fraction of 15 to 20%, atrial fibrillation, seizure disorder, hypertension, depression, hyperlipidemia and unspecified psychiatric disorder on Zyprexa had a total left shoulder repla cement on May 18, 2022. Postoperatively he developed hypotension and was started on norepinephrine which improved it. He was in the ICU for a day and transferred to the floor. During this stay he dislocated his shoulder and needs either close reduction or open surgical repair. Patient is feeling overall good. He denies any chest pain. He has little shortness of breath which is unchanged. He denies any orthopnea PND leg swelling. No syncopal events. No history of bleeding on apixaban. Past History Past Medical History: CAD, GERD, heart failure, hypertension, hyperlipidemia, seizures, other (Depression) Past Surgical History: CABG, Other (Left shoulder replacement) Social history: lives with family, full code Family history: hypertension Medications and Allergies Allergies Allergy/AdvReac Type Severity Reaction Status Date / Time escitalopram [From Lexapro] Allergy Diarrhea Verified 05/16/22 11:43 sertraline [From Zoloft] Allergy Diarrhea Verified 05/16/22 11:43 Home Medications Medication Instructions Recorded Confirmed Last Taken Type Atorvastatin Calcium [Lipitor] 20 mg PO DAILY 05/16/18 05/16/22 05/18/22 06:00 History Lacosamide [Vimpat] 200 mg PO QAM 05/16/18 05/16/22 05/18/22 06:00 History Lacosamide [Vimpat] 300 mg PO QHS 05/16/18 05/18/22 05/17/22 History Apixaban [Eliquis] 5 mg PO BID 05/16/22 05/18/22 05/14/22 History Baclofen [Lioresal] 10 mg PO PRN PRN 05/16/22 05/18/22 Unknown History FLUoxetine HCL [FLUoxetine] 60 mg PO QDAY 05/16/22 05/16/22 05/18/22 06:00 History Meloxicam [Mobic] 7.5 mg PO QDAY 05/16/22 05/16/22 Unknown History Metoprolol [Lopressor TAB] 50 mg PO DAILY 05/16/22 05/16/22 05/18/22 06:00 History Naproxen Sodium [Aleve] 220 mg PO DAILY 05/16/22 05/16/22 Unknown History OLANZapine [Zyprexa] 5 mg PO DAILY 05/16/22 05/16/22 05/18/22 06:00 History Omeprazole 40 mg PO DAILY 05/16/22 05/16/22 05/18/22 06:00 History Prazosin [Minipress] 1 mg PO DAILY 05/16/22 05/16/22 05/18/22 06:00 History Metoprolol [Lopressor TAB] 50 mg PO TID 30 Days #90 tablet 05/22/22 Unknown Rx oxyCODONE /ACETAMINOPHEN [Percocet 1 tab PO Q6H PRN 3 Days #12 tablet 05/22/22 Unknown Rx 5/325 mg] Active Meds: Active Medications Atorvastatin Calcium (Atorvastatin 20 Mg Tab) 20 mg PO QHS [facility] Last Admin: 05/23/22 22:53 Dose: 20 mg Baclofen (Baclofen 10 Mg Tab) 10 mg PO DAILY PRN PRN Reason: Muscle Spasm Last Admin: 05/24/22 09:15 Dose: 10 mg Docusate Sodium (Docusate Sodium 100 Mg Cap) 100 mg PO BID [facility] Last Admin: 05/24/22 09:22 Dose: 100 mg Enoxaparin Sodium (Enoxaparin 40 Mg/0.4 Ml Inj) 40 mg SUB-Q QDAY [facility] Last Admin: 05/24/22 09:13 Dose: 40 mg Fluoxetine HCl (Fluoxetine 20 Mg Cap) 60 mg PO QDAY [facility] Last Admin: 05/24/22 09:14 Dose: 60 mg Ceftriaxone Sodium (Rocephin/Ns 2 Gm/100 Ml) 2 gm in 100 mls @ 200 mls/hr IV Q24H [facility] Last Admin: 05/24/22 11:37 Dose: 200 mls/hr Ibuprofen (Ibuprofen 600 Mg Tab) 600 mg PO Q6H PRN PRN Reason: Pain, Mild (1-3) Last Admin: 05/19/22 19:07 Dose: 600 mg Lacosamide (Lacosamide 100 Mg Tab) 300 mg PO QHS [facility] Last Admin: 05/23/22 22:53 Dose: 300 mg Lacosamide (Lacosamide 100 Mg Tab) 200 mg PO QAM [facility] Last Admin: 05/24/22 09:14 Dose: 200 mg Metoprolol Tartrate (Metoprolol Tartrate 25 Mg Tab) 50 mg PO TID [facility] Last Admin: 05/24/22 09:14 Dose: 50 mg Morphine Sulfate (Morphine 2 Mg/1 Ml Inj) 2 mg IV Q4H PRN PRN Reason: Pain, Moderate (4-6) Last Admin: 05/20/22 10:03 Dose: 2 mg Olanzapine (Olanzapine 5 Mg Tab) 5 mg PO DAILY [facility] Last Admin: 05/24/22 09:22 Dose: 5 mg Oxycodone/Acetaminophen (Oxycodone /Acetaminophen 5-325mg Tab) 1 tab PO Q6H PRN PRN Reason: Pain, Moderate (4-6) Last Admin: 05/24/22 09:14 Dose: 1 tab Pantoprazole Sodium (Pantoprazole 40 Mg Tab) 40 mg PO DAILY [facility] Last Admin: 05/24/22 09:14 Dose: 40 mg Prazosin HCl (Prazosin 1 Mg Cap) 1 mg PO DAILY [facility] Last Admin: 05/24/22 09:13 Dose: 1 mg Review of Systems Constitutional: no weight loss Ears, nose, mouth and throat: no ear pain Cardiovascular: dyspnea on exertion, no chest pain, no orthopnea, no palpitations, no edema, no syncope, no lightheadedness Respiratory: shortness of breath, no cough Gastrointestinal: no abdominal pain, no nausea, no vomiting Genitourinary Male: no dysuria Musculoskeletal: arm numbness/tingling Neurological: no head injury Psychiatric: no anxiety Endocrine: no palpatations Hematologic/Lymphatic: no easy bleeding Physical Examination Vital Signs Temp Pulse Resp BP Pulse Ox 97.4 F L 97 H 16 148/81 97 05/17/22 10:30 05/17/22 10:30 05/17/22 10:30 05/17/22 10:30 05/17/22 10:30 General appearance: no acute distress HEENT: Positive: PERRL Neck: Positive: neck supple Cardiac: Positive: irregularly irregular, S1/S2. Negative: Audible Murmur Lungs: Positive: clear to auscultation, No Wheeze, Rales, Rhonchi Neuro: Positive: Grossly Intact Abdomen: Positive: Soft Skin: Negative: Rash Incision: Incision Site (Dressing present left shoulder) Extremities: Absent: edema Results 05/24/22 04:40 05/24/22 04:40 CBC 05/24/22 Range/Units 04:40 WBC 7.9 (4.5-11.0) K/mm3 RBC 2.98 L (3.65-5.03) M/mm3 Hgb 9.8 L (11.8-15.2) gm/dl Hct 28.8 L (35.5-45.6) % Plt Count 168 (140-440) K/mm3 Lymph # (Auto) 1.6 (1.2-5.4) K/mm3 [place] # (Auto) 0.9 H (0.0-0.8) K/mm3 Eos # (Auto) 0.1 (0.0-0.4) K/mm3 Baso # (Auto) 0.0 (0.0-0.1) K/mm3 Comprehensive Metabolic Panel 05/24/22 Range/Units 04:40 Sodium 133 L (137-145) mmol/L Potassium 3.2 L (3.6-5.0) mmol/L Chloride 100.2 (98-107) mmol/L Carbon Dioxide 21 L (22-30) mmol/L BUN 13 (9-20) mg/dL Creatinine 0.7 L (0.8-1.3) mg/dL Glucose 105 H (75-100) mg/dL Calcium 8.4 (8.4-10.2) mg/dL EKG interpretations - EKG Supraventricular dysrhythmia: atrial flutter (On May 20) Assessment and Plan Patient denies any acute cardiac symptoms. He had a SPECT done on 05/04/2022 which showed a medium sized defect of severe intensity located in the basal to mid inferior region which was fixed suggestive of a prior infarction. The LV was mildly dilated with an EF of 35%. No further cardiac work-up needed at this time patient is determined to be intermediate risk for this shoulder surgery. Please proceed with the planned surgery. Please keep the potassium above 4 and magnesium above 2. Continue metoprolol. Hold apixaban until after the surgery restart when safe from bleeding standpoint. Please place the patient on telemetry - Patient Problems (1) Preoperative cardiovascular examination Current Visit: Yes Status: Acute (2) CAD (coronary artery disease) of artery bypass graft Current Visit: Yes Status: Acute (3) Systolic and diastolic CHF, chronic Current Visit: Yes Status: Acute (4) Atrial fibrillation and flutter Current Visit: Yes Status: Acute
[2022-05-24] MEDS: MORPHINE 2 MG/1 ML INJ IV PRN ×2 (14:01→20:42)
--- NOTE | 2022-05-24 14:21 | Progress Note ---
Assessment and Plan s/p left TSR with anterior dislocation humeral component will require closed possible open reduction left shoulder Subjective Date of service: 05/24/22 Interval history: no major c/o's noted... Objective Vital signs: Vital Signs - 12hr 05/24/22 05/24/22 05:56 12:00 Temperature 99.0 F Pulse Rate 106 H Respiratory 20 Rate Blood Pressure 114/67 O2 Sat by Pulse 92 98 Oximetry Incision: clean and dry - Labs CBC & BMP: 05/24/22 04:40 05/24/22 04:40 Labs: Abnormal lab results 05/24/22 05/24/22 Range/Units 04:40 04:40 RBC 2.98 L (3.65-5.03) M/mm3 Hgb 9.8 L (11.8-15.2) gm/dl Hct 28.8 L (35.5-45.6) % MCV 97 H (84-94) fl MCH 33 H (28-32) pg [place] % (Auto) 11.6 H (0.0-7.3) % [place] # (Auto) 0.9 H (0.0-0.8) K/mm3 Sodium 133 L (137-145) mmol/L Potassium 3.2 L (3.6-5.0) mmol/L Carbon Dioxide 21 L (22-30) mmol/L Creatinine 0.7 L (0.8-1.3) mg/dL Glucose 105 H (75-100) mg/dL
[2022-05-25] MEDS: FLUoxetine 20 MG CAP PO SCH (09:35)
[2022-05-25] MEDS: MORPHINE 2 MG/1 ML INJ IV PRN ×3 (09:36→22:08)
[2022-05-25] MEDS: DOCUSATE SODIUM 100 MG CAP PO SCH ×2 (09:36→22:07)
[2022-05-25] MEDS: METOPROLOL TARTRATE 25 MG TAB PO SCH ×3 (09:36→22:07)
[2022-05-25] MEDS: PANTOPRAZOLE 40 MG TAB PO SCH (09:37)
[2022-05-25] MEDS: PRAZOSIN 1 MG CAP PO SCH (09:40)
[2022-05-25] MEDS: LACOSAMIDE 100 MG TAB PO SCH ×2 (09:41→22:07)
--- NOTE | 2022-05-25 10:29 | Progress Note ---
Assessment and Plan Patient denies any acute cardiac symptoms. He had a SPECT done on 05/04/2022 which showed a medium sized defect of severe intensity located in the basal to mid inferior region which was fixed suggestive of a prior infarction. The LV was mildly dilated with an EF of 35%. No further cardiac work-up needed at this time patient is determined to be intermediate risk for this shoulder surgery. Please proceed with the planned surgery. Please keep the potassium above 4 and magnesium above 2. Continue metoprolol. Hold apixaban until after the surgery restart when safe from bleeding standpoint. Patient is on prazosin. He is unsure why is he taking. He denies BPH. Can stop this medication as this can cause hypotension. - Patient Problems (1) Preoperative cardiovascular examination Current Visit: Yes Status: Acute (2) CAD (coronary artery disease) of artery bypass graft Current Visit: Yes Status: Acute (3) Systolic and diastolic CHF, chronic Current Visit: Yes Status: Acute (4) Atrial fibrillation and flutter Current Visit: Yes Status: Acute Subjective Principal diagnosis: CAD, CHF, AFIB Interval history: Patient doing well. No new complaints. Still has some left shoulder pain from surgery. Objective Vital Signs Temp Pulse Resp BP Pulse Ox 05/25/22 09:40 100 H 128/70 05/25/22 09:36 100 H 128/70 05/24/22 23:41 98.3 F 86 20 110/68 95 05/24/22 23:11 20 96 05/24/22 20:36 98.0 F 100 H 18 123/71 96 05/24/22 13:43 107 H 18 119/69 96 05/24/22 12:00 98 - Physical Examination HEENT: Positive: PERRL Neck: Positive: neck supple Cardiac: Positive: irregularly irregular, S1/S2 Lungs: Positive: clear to auscultation Neuro: Positive: Grossly Intact Abdomen: Positive: Soft Skin: Negative: Rash Incision: Incision Site (Dressing present left shoulder) Extremities: Absent: edema - Telemetry EKG Rhythm: Atrial Flutter
[2022-05-25] MEDS ORDERED: LACTATED RINGERS 1,000 ML ONE (12:35)
[2022-05-25] MEDS ORDERED: KETOROLAC 30 MG/1 ML INJ ONE (12:40)
[2022-05-25] MEDS ORDERED: BUPIVACAINE/PF (0.5%) 5 MG/1 ML 30 ML VIAL INFILTRATI ONE (12:40)
[2022-05-25] MEDS ORDERED: MORPHINE 10 MG/1 ML INJ ONE (12:41)
[2022-05-25] MEDS ORDERED: TRANEXAMIC ACID 1,000 MG/10 ML ONE (12:41)
[2022-05-25] MEDS ORDERED: SODIUM CHLORIDE 0.9% 0 ML ONE ×2 (12:41)
--- NOTE | 2022-05-25 13:13 | Progress Note ---
Assessment and Plan Assessment and plan: This is a 67-year-old male with A. fib, heart failure with reduced EF (20 to 25%) s/p AICD, schizophrenia, severe depression, hypertension, hyperlipidemia, PVD s/p stents to bilateral lower extremities, [place], smoker who had a total left shoulder replacement on 05/18. Patient was hypotensive and was started on low- dose Kian-Synephrine and transferred to the ICU for closer monitoring. Hypertension has now resolved Left lower lobe pneumonia h/o schizophrenia severe depression Continue fluoxetine, zyprexa seizure disorder -Continue vimpat HTN -Blood pressure monitoring per protocol -Resume home metoprolol HFrEF with AICD in situ afib -Hold home eliquis HLD -Continue lipitor PVD s/p stents to BLE [place] -Pulmonary hygiene -IS to bedside -Outpatient pulm follow up -SPO2 monitoring per protocol Tobacco abuse -Smoking cessation counseling Hospital course to date: 05/19: Patient has MIVF running, no acute vents reported overnight. Systolic blood pressures ranging from upper 90s to 110s. Transfer to the floor today. Remove miriam, send stat h/h due to bleeding with getting OOB with PT. 05/20: Patient still in moderate amt of pain. Added percocet for improved pain control. Changed metoprolol to 50 mg po bid dosing due to persistently elevated HR. anticipate d/c in next 24-48hrs. 05/21: HR better controlled. PT recommended home health PT. will consult CM for arrangement and discuss with CM in Am. 05/22: CT scan ordered and show anterior dislocation humeral component. S/p reverse total shoulder replacement, dislocated humeral component, will require c losed possible open reduction left shoulder 05/23: Chest x-ray reveals left lower lobe opacity. Patient does report cough. We will initiate IV antibiotics for left lower lobe pneumonia 05/24: We will obtain cardiology consultation for medical clearance regarding close possible open reduction left shoulder. Continue supportive care 05/25: I discussed with orthopedic surgery who is planning for closed possible open reduction of left shoulder later today. Continue pain control and supportive care. Continue antibiotics for pneumonia. History Interval history: No new issues overnight Hospitalist Physical - Constitutional Vitals: Temp Pulse Resp BP Pulse Ox 98.3 F 100 H 20 128/70 95 05/24/22 23:41 05/25/22 09:40 05/24/22 23:41 05/25/22 09:40 05/24/22 23:41 General appearance: Present: no acute distress - EENT Eyes: Present: PERRL, EOM intact ENT: hearing intact, clear oral mucosa, dentition normal - Neck Neck: Present: supple, normal ROM - Respiratory Respiratory effort: normal Respiratory: bilateral: CTA - Cardiovascular Rhythm: regular Heart Sounds: Present: S1 & S2. Absent: gallop, rub - Extremities Extremities: no ischemia, No edema, Full ROM - Abdominal General gastrointestinal: soft, non-tender, non-distended, normal bowel sounds - Integumentary Integumentary: Present: clear, warm, dry - Neurologic Neurologic: CNII-XII intact, moves all extremities HEART Score - HEART Score Age: > 65 Risk factors: 1-2 risk factors Troponin: Troponin T < 0.010 ng/mL (0.00-0.029) 05/20/22 22:38 Troponin: < normal limit - Critical Actions Critical Actions: 0-3 pts:0.9-1.7%risk of adverse cardiac event.Candidate for discharge Results - Labs CBC & Chem 7: 05/24/22 04:40 05/24/22 04:40 Labs: Laboratory Last Values WBC 7.9 K/mm3 (4.5-11.0) 05/24/22 04:40 RBC 2.98 M/mm3 (3.65-5.03) L 05/24/22 04:40 Hgb 9.8 gm/dl (11.8-15.2) L 05/24/22 04:40 Hct 28.8 % (35.5-45.6) L 05/24/22 04:40 MCV 97 fl (84-94) H 05/24/22 04:40 MCH 33 pg (28-32) H 05/24/22 04:40 MCHC 34 % (32-34) 05/24/22 04:40 RDW 14.2 % (13.2-15.2) 05/24/22 04:40 Plt Count 168 K/mm3 (140-440) 05/24/22 04:40 Lymph % (Auto) 20.8 % (13.4-35.0) 05/24/22 04:40 [place] % (Auto) 11.6 % (0.0-7.3) H 05/24/22 04:40 Eos % (Auto) 1.3 % (0.0-4.3) 05/24/22 04:40 Baso % (Auto) 0.1 % (0.0-1.8) 05/24/22 04:40 Lymph # (Auto) 1.6 K/mm3 (1.2-5.4) 05/24/22 04:40 [place] # (Auto) 0.9 K/mm3 (0.0-0.8) H 05/24/22 04:40 Eos # (Auto) 0.1 K/mm3 (0.0-0.4) 05/24/22 04:40 Baso # (Auto) 0.0 K/mm3 (0.0-0.1) 05/24/22 04:40 Seg Neutrophils % 66.2 % (40.0-70.0) 05/24/22 04:40 Seg Neutrophils # 5.2 K/mm3 (1.8-7.7) 05/24/22 04:40 Sodium 133 mmol/L (137-145) L 05/24/22 04:40 Potassium 3.2 mmol/L (3.6-5.0) L 05/24/22 04:40 Chloride 100.2 mmol/L (98-107) 05/24/22 04:40 Carbon Dioxide 21 mmol/L (22-30) L 05/24/22 04:40 Anion Gap 15 mmol/L 05/24/22 04:40 BUN 13 mg/dL (9-20) 05/24/22 04:40 Creatinine 0.7 mg/dL (0.8-1.3) L 05/24/22 04:40 Estimated GFR > 60 ml/min 05/24/22 04:40 BUN/Creatinine Ratio 19 % 05/24/22 04:40 Glucose 105 mg/dL (75-100) H 05/24/22 04:40 POC Glucose 138 mg/dL (70-105) H 05/20/22 21:28 Calcium 8.4 mg/dL (8.4-10.2) 05/24/22 04:40 Troponin T < 0.010 ng/mL (0.00-0.029) 05/20/22 22:38 SARS-CoV-2 (PCR) Negative (Negative) 05/17/22 10:30 Blood Type O POSITIVE 05/25/22 04:47 Antibody Screen Negative 05/25/22 04:47 Guzman/IV: Voiding Method Toilet Active Medications - Current Medications Current Medications: Generic Name Dose Route Start Last Admin Trade Name Freq PRN Reason Stop Dose Admin Atorvastatin Calcium 20 mg 05/19/22 22:00 05/24/22 21:11 Atorvastatin 20 Mg Tab PO 20 mg QHS [facility] Administration Baclofen 10 mg 05/19/22 05:58 05/24/22 09:15 Baclofen 10 Mg Tab PO 10 mg DAILY PRN Administration Muscle Spasm Docusate Sodium 100 mg 05/19/22 10:00 05/25/22 09:36 Docusate Sodium 100 Mg Cap PO 100 mg BID [facility] Administration Enoxaparin Sodium 40 mg 05/18/22 12:00 05/24/22 09:13 Enoxaparin 40 Mg/0.4 Ml Inj SUB-Q 40 mg QDAY [facility] Administration Fluoxetine HCl 60 mg 05/19/22 10:00 05/25/22 09:35 Fluoxetine 20 Mg Cap PO 60 mg QDAY [facility] Administration Ceftriaxone Sodium 2 gm in 100 mls @ 200 mls/hr 05/23/22 11:00 05/24/22 11:37 Rocephin/Ns 2 Gm/100 Ml IV 200 mls/hr Q24H [facility] Administration Ibuprofen 600 mg 05/18/22 11:00 05/19/22 19:07 Ibuprofen 600 Mg Tab PO 600 mg Q6H PRN Administration Pain, Mild (1-3) Lacosamide 300 mg 05/19/22 22:00 05/24/22 21:11 Lacosamide 100 Mg Tab PO 300 mg QHS [facility] Administration Lacosamide 200 mg 05/19/22 10:00 05/25/22 09:41 Lacosamide 100 Mg Tab PO 200 mg QAM [facility] Administration Metoprolol Tartrate 50 mg 05/21/22 12:12 05/25/22 09:36 Metoprolol Tartrate 25 Mg Tab PO 50 mg TID [facility] Administration Morphine Sulfate 2 mg 05/18/22 10:00 05/25/22 09:36 Morphine 2 Mg/1 Ml Inj IV 2 mg Q4H PRN Administration Pain, Moderate (4-6) Olanzapine 5 mg 05/19/22 10:00 05/25/22 09:36 Olanzapine 5 Mg Tab PO 5 mg DAILY [facility] Administration Oxycodone/Acetaminophen 1 tab 05/20/22 13:09 05/24/22 09:14 Oxycodone /Acetaminophen 5-325mg Tab PO 1 tab Q6H PRN Administration Pain, Moderate (4-6) Pantoprazole Sodium 40 mg 05/19/22 10:00 05/25/22 09:37 Pantoprazole 40 Mg Tab PO 40 mg DAILY [facility] Administration Prazosin HCl 1 mg 05/19/22 10:00 05/25/22 09:40 Prazosin 1 Mg Cap PO 1 mg DAILY [facility] Administration
--- NOTE | 2022-05-25 13:19 | Anesthesia Day of Surgery ---
Anesthesia Day of Surgery - Day of Surgery Patient Examined: Yes Patient H&P Reviewed: Yes Patient is NPO: Yes
[2022-05-25] MEDS ORDERED: LACTATED RINGERS 1,000 ML IV SCH (13:30)
[2022-05-25] MEDS ORDERED: HYDROmorphone 0.5 MG/0.5 ML INJ IV PRN (14:00)
[2022-05-25] MEDS ORDERED: SUCCINYLCHOLINE CHLORIDE 200 MG/10 ML INJ MDV ONE (14:01)
[2022-05-25] MEDS ORDERED: ROCURONIUM 50 MG/5 ML INJ IV ONE (14:01)
[2022-05-25] MEDS ORDERED: LIDOCAINE MPF (2%) 20 MG/1 ML VIAL 5 ML ONE (14:01)
[2022-05-25] MEDS ORDERED: propofoL 200 MG/20 ML VIAL IV ONE (14:02)
[2022-05-25] MEDS ORDERED: fentaNYL 100 MCG/2 ML INJ ONE (14:02)
[2022-05-25] MEDS ORDERED: HYDROmorphone 1 MG/1 ML INJ ONE (14:02)
[2022-05-25] MEDS ORDERED: SUGAMMADEX SODIUM 200 MG/2 ML VIAL IV ONE (14:41)
[2022-05-25] MEDS ORDERED: ALBUTEROL 2.5 MG/3 ML NEBU IH PRN (15:27)
[2022-05-25] MEDS ORDERED: SODIUM CHLORIDE FOR INHALATION NEBU 3 ML ONE (15:28)
--- NOTE | 2022-05-25 15:29 | Procedure Note ---
Date of procedure: 05/25/22 Pre-op diagnosis: Dislocated left shoulder prosthesis status post reverse shoulder replacemen Post-op diagnosis: same (Same) Procedure: Closed reduction left shoulder dislocation Procedure The patient was brought to the OR on the hospital bed following induction with general anesthesia the patient was then placed in a beachchair position the wound was expected patient did not appear to have any underlying drainage or infection with the arm at the side gentle traction was applied as well as a some extension with a palpable reduction noted at the glenohumeral joint this was confirmed via C arm The patient was placed in a shoulder immobilizer where he will remain for the next 4 to 6 weeks patient tolerated procedure there were no complications he was taken to postanesthesia recovery Anesthesia: MAC Surgeon: JOSSELINE WALKER (Iban Antonio, 1st assist) Estimated blood loss: none Condition: stable Disposition: PACU
[2022-05-25] MEDS: cefTRIAXone/NS 2 GM/100 ML 2 GM/100 ML BAG IV SCH (17:17)
[2022-05-25] MEDS: ENOXAPARIN 40 MG/0.4 ML INJ SUB-Q SCH (17:37)
--- NOTE | 2022-05-25 17:47 | Post Anesthesia Evaluation ---
- Post Anesthesia Evaluation Patient Participated: Yes Airway Patent: Yes Stable Respiratory Function: Yes Nausea/Vomiting: No Temp > 96.8F: Yes Pain Manageable: Yes Adequeate Hydration: Yes Anesthesia Complications: No
[2022-05-26 06:37] LABS: Basophils % (Auto) 0.5 % (0.0-1.8); Eosinophils # (Auto) 0.2 K/mm3 (0.0-0.4); Eosinophils % (Auto) 2.5 % (0.0-4.3); Hematocrit 28.9 % (35.5-45.6); Hemoglobin 9.7 gm/dl (11.8-15.2); Lymphocytes # (Auto) 1.6 K/mm3 (1.2-5.4); Lymphocytes % (Auto) 26.9 % (13.4-35.0); Mean Corpuscular HGB Conc 34 % (32-34); Mean Corpuscular Volume 97 fl (84-94); Monocytes # (Auto) 0.6 K/mm3 (0.0-0.8); Monocytes % (Auto) 10.7 % (0.0-7.3); Platelet Count 199 K/mm3 (140-440); Red Blood Count 2.99 M/mm3 (3.65-5.03); Red Cell Distribution Width 14.5 % (13.2-15.2)
[2022-05-26 07:21] LABS: Blood Urea Nitrogen 12 mg/dL (9-20); Calcium 8.3 mg/dL (8.4-10.2); Hemolysis Index 6
[2022-05-26 07:22] LABS: BUN/Creatinine Ratio 17
--- NOTE | 2022-05-26 07:47 | XRay Report ---
Single fluoroscopic image submitted Indication: Intraoperative localization Impression: A single image of the left shoulder was submitted for documentation purposes with radiol ogy involvement. Left shoulder arthroplasty relocation. Please refer to the operative note for comp lete details. Fluoroscopic time: 0.1 minutes Number of fluoroscopic images: 1 Signer Name: Pierre Ashby MD Signed: 05/26/2022 7:43 AM Workstation Name: [id number]
--- NOTE | 2022-05-26 09:51 | Progress Note ---
Assessment and Plan Patient denies any acute cardiac symptoms. He had a SPECT done on 05/04/2022 which showed a medium sized defect of severe intensity located in the basal to mid inferior region which was fixed suggestive of a prior infarction. The LV was mildly dilated with an EF of 35%. No further cardiac work-up needed at this time patient is determined to be intermediate risk for this shoulder surgery. Please proceed with the planned surgery. Please keep the potassium above 4 and magnesium above 2. Continue metoprolol. Hold apixaban until after the surgery restart when safe from bleeding standpoint. Rates are controlled, continue current medications, call with questions - Patient Problems (1) Preoperative cardiovascular examination Current Visit: Yes Status: Acute (2) CAD (coronary artery disease) of artery bypass graft Current Visit: Yes Status: Acute (3) Systolic and diastolic CHF, chronic Current Visit: Yes Status: Acute (4) Atrial fibrillation and flutter Current Visit: Yes Status: Acute Subjective Date of service: 05/26/22 Principal diagnosis: CAD, CHF, AFIB Interval history: Patient doing well he had his close reduction yesterday tolerated the procedure well rates are controlled. Objective Vital Signs Temp Pulse Resp BP Pulse Ox 05/26/22 05:03 98.0 F 83 20 113/73 98 05/26/22 00:00 17 96 05/25/22 22:07 101 H 106/61 05/25/22 21:33 97.6 F 101 H 18 106/61 97 05/25/22 16:38 97.7 F 106 H 22 104/69 97 05/25/22 16:25 97.7 F 102 H 22 104/69 97 05/25/22 16:10 97.7 F 92 H 20 117/70 95 05/25/22 15:55 89 20 110/55 97 05/25/22 15:40 89 19 113/67 97 05/25/22 15:25 91 H 20 117/78 98 05/25/22 15:20 96 H 20 112/74 98 05/25/22 15:15 94 H 20 117/76 98 05/25/22 15:12 97.8 F 94 H 18 124/69 100 05/25/22 12:30 98 F 79 14 116/70 95 05/25/22 12:20 98 F 79 14 116/70 79 L 05/25/22 12:00 20 97 - Physical Examination HEENT: Positive: PERRL Neck: Positive: neck supple Cardiac: Positive: irregularly irregular, S1/S2 Lungs: Positive: clear to auscultation Neuro: Positive: Grossly Intact Abdomen: Positive: Soft Skin: Negative: Rash Incision: Incision Site (Dressing present left shoulder) Extremities: Absent: edema - Labs and Meds CBC 05/26/22 Range/Units 05:45 WBC 6.0 (4.5-11.0) K/mm3 RBC 2.99 L (3.65-5.03) M/mm3 Hgb 9.7 L (11.8-15.2) gm/dl Hct 28.9 L (35.5-45.6) % Plt Count 199 (140-440) K/mm3 Lymph # (Auto) 1.6 (1.2-5.4) K/mm3 [place] # (Auto) 0.6 (0.0-0.8) K/mm3 Eos # (Auto) 0.2 (0.0-0.4) K/mm3 Baso # (Auto) 0.0 (0.0-0.1) K/mm3 Comprehensive Metabolic Panel 05/26/22 Range/Units 05:45 Sodium 139 (137-145) mmol/L Potassium 4.0 D (3.6-5.0) mmol/L Chloride 106.1 (98-107) mmol/L Carbon Dioxide 21 L (22-30) mmol/L BUN 12 (9-20) mg/dL Creatinine 0.7 L (0.8-1.3) mg/dL Glucose 99 (75-100) mg/dL Calcium 8.3 L (8.4-10.2) mg/dL - Telemetry EKG Rhythm: Atrial Flutter
--- NOTE | 2022-05-26 09:54 | Discharge Summary ---
Providers - Providers Date of Admission: 05/19/22 09:00 Date of discharge: 05/26/22 Attending physician: FRANK VAUGHN 05/18/22 09:59 Consult to Case Management [CONS] Routine Services Needed at Discharge: Other Notified:: yes Additional Physician Instructions: Assess Discharge needs. Physical Therapy Evaluation and Treat [CONS] Routine Comment: Reason For Exam: Eval and Treat 05/18/22 17:45 Consult to Physician [CONS] Routine Comment: Consulting Provider: SAMUEL VARGAS Physician Instructions: Reason For Exam: MEDICAL MANAGEMENT 05/18/22 18:44 Consult to Physician [CONS] Routine Comment: Consulting Provider: SAMUEL VARGAS Physician Instructions: Reason For Exam: Hypotension,[place] 05/19/22 09:36 Occupational Therapy Evaluate and Treat [CONS] Routine Comment: Reason For Exam: post shoulder surgery 05/21/22 12:06 Consult to Case Management [CONS] Routine Services Needed at Discharge: Home Health Services Notified:: CM Comment:: home health PT 05/22/22 11:31 Occupational Therapy Evaluate and Treat [CONS] Stat Comment: Reason For Exam: Occupational Therapy Outpatient 05/24/22 09:50 Consult to Physician [CONS] Routine Comment: Consulting Provider: KIRAN BERNARD Physician Instructions: Reason For Exam: cardiac clearance Primary care physician: RAKESH FINNEGAN MD Hospitalization Reason for admission: shoulder replacement Hospital course: This is a 67-year-old male with A. fib, heart failure with reduced EF (20 to 25%) s/p AICD, schizophrenia, severe depression, hypertension, hyperlipidemia, PVD s/p stents to bilateral lower extremities, [place], smoker who had a total left shoulder replacement on 05/18. Patient was hypotensive and was started on low- dose Kian-Synephrine and transferred to the ICU for closer monitoring. Hypotension later resolved. Patient also received IV fluid bolus/hydration. Patient had no evidence of fever but did have chest x-ray which revealed left lower lobe opacity. Therefore, patient met criteria for septic shock with hypotension, tachycardia and diagnosis of pneumonia. Patient was started on IV antibiotics with significant improvement. Patient was continued on fluoxetine and Zyprexa for severe depression. Patient was also continued on Vimpat for seizure disorder and metoprolol for hypertension. Patient's Eliquis was held due to patient requiring surgery. Patient did have some complication during the hospital stay and was noted to have anterior dislocation of humeral component seen on CT scan on 05/22. Cardiology reevaluated the patient for medical clearance for surgery. On 05/25, patient underwent closed reduction of left shoulder dislocation. Patient is now stable and antibiotics have been completed for pneumonia. Therefore, patient is felt to have received maximal hospital benefit and will be discharged home. Dedicated discharge time 32 minutes Hospital course by disease process septic shock --resolved left lower lobe pneumonia-resolved h/o schizophrenia severe depression Continue fluoxetine, zyprexa seizure disorder -Continue vimpat HTN -Blood pressure monitoring per protocol -Resume home metoprolol HFrEF with AICD in situ afib -Hold home eliquis HLD -Continue lipitor PVD s/p stents to BLE [place] -Pulmonary hygiene -IS to bedside -Outpatient pulm follow up -SPO2 monitoring per protocol Tobacco abuse -Smoking cessation counseling Hospital course to date: 05/19: Patient has MIVF running, no acute vents reported overnight. Systolic blood pressures ranging from upper 90s to 110s. Transfer to the floor today. Remove miriam, send stat h/h due to bleeding with getting OOB with PT. 05/20: Patient still in moderate amt of pain. Added percocet for improved pain control. Changed metoprolol to 50 mg po bid dosing due to persistently elevated HR. anticipate d/c in next 24-48hrs. 05/21: HR better controlled. PT recommended home health PT. will consult CM for arrangement and discuss with CM in Am. 05/22: CT scan ordered and show anterior dislocation humeral component. S/p reverse total shoulder replacement, dislocated humeral component, will require closed possible open reduction left shoulder 05/23: Chest x-ray reveals left lower lobe opacity. Patient does report cough. We will initiate IV antibiotics for left lower lobe pneumonia 05/24: We will obtain cardiology consultation for medical clearance regarding close possible open reduction left shoulder. Continue supportive care 05/25: I discussed with orthopedic surgery who is planning for closed possible open reduction of left shoulder later today. Continue pain control and supportive care. Continue antibiotics for pneumonia. Disposition: HOME / SELF CARE / HOMELESS Final Discharge Diagnosis (Prints w/discharge instructions): Left shoulder replacement, anterior shoulder dislocation with closed reduction, sepsis, left lower lobe pneumonia, severe depression, schizophrenia, seizure disorder, hypertension, heart failure with reduced ejection fraction with AICD in situ, A. fib, hyperlipidemia, PVD status post stents to bilateral lower extremities, [place], tobacco abuse Core Measure Documentation - Palliative Care Palliative Care/ Comfort Measures: Not Applicable - Core Measures Any of the following diagnoses?: none Exam - Constitutional Vitals: Temp Pulse Resp BP Pulse Ox 98.0 F 83 20 113/73 98 05/26/22 05:03 05/26/22 05:03 05/26/22 05:03 05/26/22 05:03 05/26/22 05:03 General appearance: Present: no acute distress, well-nourished - EENT Eyes: Present: PERRL ENT: hearing intact, clear oral mucosa - Neck Neck: Present: supple, normal ROM - Respiratory Respiratory effort: normal Respiratory: bilateral: CTA - Cardiovascular Heart Sounds: Present: S1 & S2. Absent: rub, click - Extremities Extremities: pulses symmetrical, No edema Peripheral Pulses: within normal limits - Abdominal General gastrointestinal: Present: soft, non-tender, non-distended, normal bowel sounds Male genitourinary: Present: normal - Integumentary Integumentary: Present: clear, warm, dry - Musculoskeletal Musculoskeletal: gait normal, strength equal bilaterally - Psychiatric Psychiatric: appropriate mood/affect, intact judgment & insight - Neurologic Neurologic: CNII-XII intact, moves all extremities Plan Activity: advance as tolerated Weight Bearing Status: Weight Bear as Tolerated Diet: regular Wound: per your surgeon's advice Follow up with: JOSSELINE WALKER MD [Staff Physician] - 7 Days RAKESH FINNEGAN MD [Primary Care Provider] - 7 Days Prescriptions: Apixaban [Eliquis] 5 mg PO BID #60 tab FLUoxetine HCL [FLUoxetine] 60 mg PO QDAY #30 tab Baclofen [Lioresal] 10 mg PO PRN PRN #30 tab PRN Reason: Muscle Spasm Metoprolol [Lopressor TAB] 50 mg PO DAILY #30 tab Metoprolol [Lopressor TAB] 50 mg PO TID 30 Days #90 tablet Omeprazole 40 mg PO DAILY #30 tab-cap oxyCODONE /ACETAMINOPHEN [Percocet 5/325 mg] 1 tab PO Q6H PRN 3 Days #12 tablet PRN Reason: Pain, Moderate (4-6) Prazosin 1 mg PO DAILY #30 cap Lacosamide [Vimpat] 300 mg PO QHS #30 tab Lacosamide [Vimpat] 200 mg PO QAM #30 tab OLANZapine [Zyprexa] 5 mg PO DAILY #30 tab
--- NOTE | 2022-05-26 10:17 | Progress Note ---
Subjective Date of service: 05/26/22 Principal diagnosis: CAD, CHF, AFIB Interval history: no c/o's noted...found sleeping on side, immobilzer on... Objective Vital signs: Vital Signs - 12hr 05/26/22 05/26/22 00:00 05:03 Temperature 98.0 F Pulse Rate 83 Respiratory 17 20 Rate Blood Pressure 113/73 O2 Sat by Pulse 96 98 Oximetry - Labs CBC & BMP: 05/26/22 05:45 05/26/22 05:45 Labs: Abnormal lab results 05/26/22 05/26/22 Range/Units 05:45 05:45 RBC 2.99 L (3.65-5.03) M/mm3 Hgb 9.7 L (11.8-15.2) gm/dl Hct 28.9 L (35.5-45.6) % MCV 97 H (84-94) fl MCH 33 H (28-32) pg [place] % (Auto) 10.7 H (0.0-7.3) % Carbon Dioxide 21 L (22-30) mmol/L Creatinine 0.7 L (0.8-1.3) mg/dL Calcium 8.3 L (8.4-10.2) mg/dL
[2022-05-26] MEDS: DOCUSATE SODIUM 100 MG CAP PO SCH (10:38)
[2022-05-26] MEDS: ENOXAPARIN 40 MG/0.4 ML INJ SUB-Q SCH (10:38)
[2022-05-26] MEDS: PRAZOSIN 1 MG CAP PO SCH (10:38)
[2022-05-26] MEDS: FLUoxetine 20 MG CAP PO SCH (10:38)
[2022-05-26] MEDS: PANTOPRAZOLE 40 MG TAB PO SCH (10:39)
[2022-05-26] MEDS: METOPROLOL TARTRATE 25 MG TAB PO SCH ×2 (10:39→14:31)
[2022-05-26] MEDS: LACOSAMIDE 100 MG TAB PO SCH (10:40)
[2022-05-26] MEDS: oxyCODONE /ACETAMINOPHEN 5-325MG TAB PO PRN (10:46)
[2022-05-26] MEDS: cefTRIAXone/NS 2 GM/100 ML 2 GM/100 ML BAG IV SCH (13:01)
[2022-05-26] MEDS: MORPHINE 2 MG/1 ML INJ IV PRN (14:32)
[2022-05-26 14:33] VITALS: BP 96/66
== END 2022-05-26 18:06 | disposition home or self-care (01) | DRG 483 ==
LOC: OR 08:58 → 3A 09:00 → CC1 19:17 → OBSVTOIN 05-19 09:00 → 3A 05-19 17:23
PROVIDERS: ADMIT Orthopaedic Surgery; ATTEND Hospitalist
PROC: 0RRK00Z Replacement of Left Shoulder Joint with Reverse Ball and Socket Synthetic Substitute, Open Approach (ICD-10-PCS; principal; 2022-05-18)
PROC: 0RW Upper Joints, Revision (ICD-10-PCS; 2022-05-25)
DX: T84.028A Dislocation of other internal joint prosthesis, initial encounter (principal); J18.9 Pneumonia, unspecified organism; A41.9 Sepsis, unspecified organism; R65.21 Severe sepsis with septic shock; E87.1 Hypo-osmolality and hyponatremia; I48.20 Chronic atrial fibrillation, unspecified; I48.92 Unspecified atrial flutter; I50.42 Chronic combined systolic (congestive) and diastolic (congestive) heart failure; M19.112 Post-traumatic osteoarthritis, left shoulder; Z20.822 Contact with and (suspected) exposure to COVID-19; E78.5 Hyperlipidemia, unspecified; I11.0 Hypertensive heart disease with heart failure; I25.2 Old myocardial infarction; G40.909 Epilepsy, unspecified, not intractable, without status epilepticus; F32.A Depression, unspecified; I95.81 Postprocedural hypotension; I73.9 Peripheral vascular disease, unspecified; F20.9 Schizophrenia, unspecified; Z71.6 Tobacco abuse counseling; I25.10 Atherosclerotic heart disease of native coronary artery without angina pectoris; G47.33 Obstructive sleep apnea (adult) (pediatric); Y83.8 Other surgical procedures as the cause of abnormal reaction of the patient, or of later complication, without mention of misadventure at the time of the procedure; Y92.238 Other place in hospital as the place of occurrence of the external cause; Z88.8 Allergy status to other drugs, medicaments and biological substances; Z87.891 Personal history of nicotine dependence; Z82.49 Family history of ischemic heart disease and other diseases of the circulatory system; Z95.1 Presence of aortocoronary bypass graft; Z95.810 Presence of automatic (implantable) cardiac defibrillator
CPT/HCPCS: 36415; 36620; 80048; 82962; 84484; 85014; 85018; 85025; 85027; 86850; 86900; 86901; 93005; 94760; G0378; J3490; C1713; C1776; J0330; J0690; J0696; J1100; J1170; J1650; J1885; J2250; J2270; J2370; J2405; J2704; J3010; J7120; L1830; P9045; Q9967; U0003

== ENCOUNTER 2022-05-31 11:34 | Outpatient (CLI) | payer MEDICARE ==
--- NOTE | 2022-05-31 12:19 | XRay Report ---
LEFT SHOULDER 3 VIEWS INDICATION: M25.512. COMPARISON: 05/22/2022 IMPRESSION: Left shoulder reverse arthroplasty appears in anatomic alignment. Chronic appearing fra cture in the proximal humeral shaft is again noted. No acute fracture is appreciated. The soft tissue s are unremarkable. Signer Name: Jesus Bonner Jr, MD Signed: 05/31/2022 12:14 PM Workstation Name: [id number]
== END 2022-05-31 11:35 | disposition home or self-care (01) ==
LOC: XRAY 11:34
PROVIDERS: ATTEND Orthopaedic Surgery
DX: M25.512 Pain in left shoulder (principal); Z96.651 Presence of right artificial knee joint

== ENCOUNTER 2022-06-30 10:14 | Outpatient (CLI) | payer MEDICARE ==
--- NOTE | 2022-06-30 11:38 | XRay Report ---
LEFT SHOULDER 4 VIEW(S) INDICATION / CLINICAL INFORMATION: S42.92XA FRACTURE OF LEFT SHOULDER GIRDLE,CLOSED FRACTURE. COMPARISON: 05/31/2022; 05/25/2022; 05/22/2022 FINDINGS: BONES / JOINT(S): Reverse total shoulder arthroplasty with anterior dislocation. Posterior glenoid an d proximal humeral callus. No significant arthritis. SOFT TISSUES: No significant abnormality. ADDITIONAL FINDINGS: None. IMPRESSION: 1. Anteriorly dislocated humeral arthroplasty component. Similar-appearing periglenoid and proximal h umeral ossification/callus Signer Name: Willy Manjarrez MD Signed: 06/30/2022 11:33 AM Workstation Name: [id number]
== END 2022-06-30 10:15 | disposition home or self-care (01) ==
LOC: XRAY 10:14
PROVIDERS: ATTEND Orthopaedic Surgery
DX: S42.92XA Fracture of left shoulder girdle, part unspecified, initial encounter for closed fracture (principal); S42.92XS Fracture of left shoulder girdle, part unspecified, sequela; Z96.612 Presence of left artificial shoulder joint; X58.XXXA Exposure to other specified factors, initial encounter; Y93.89 Activity, other specified; Y92.89 Other specified places as the place of occurrence of the external cause; Y99.8 Other external cause status